=== PATIENT | female | born 1965 | race Caucasian/White ===

== ENCOUNTER 2019-01-01 10:35 | Inpatient (IN) ==
[2019-01-01 11:37] LABS: Basophils # (Auto) 0 K/mcL (0.0-0.3); Basophils % (Auto) 0 % (0.0-2.0); Eosinophils # (Auto) 0.1 K/mcL (0.0-0.7); Eosinophils % (Auto) 0.5 % (0.0-7.0); Granulocytes % (Auto) 90.8 % (38.0-78.0); Hematocrit 36.4 % (36.0-48.0); Hemoglobin 12.2 g/dL (12.0-15.0); Lymphocytes # (Auto) 0.7 K/mcL (1.5-4.8); Lymphocytes % (Auto) 4.7 % (15.5-49.0); Mean Cell Volume 97.3 fL (80.0-100.0); Mean Corpuscular HGB Conc 33.5 g/dL (31.0-36.0); Mean Platelet Volume 8.8 fL (7.4-10.4); Monocytes # (Auto) 0.6 K/mcL (0.1-0.9); Platelet Count 397 K/mcL (140-440); RBC 3.74 M/mcL (4.00-5.20); Red Cell Distribution Width 13.9 % (11.5-14.5); WBC 15.9 K/mcL (4.5-11.0)
--- NOTE | 2019-01-01 11:45 | Emergency Department Note ---
Overdose HPI - General Chief Complaint: Overdose Stated Complaint: overdose Time Seen by Provider: 01/01/19 11:41 Source: other Mode of arrival: wheelchair Limitations: altered mental status - History of Present Illness complaint: accidental overdose (pt with history of previous similar episodes) Onset (ago): day(s) (2) How Overdose Was Discovered: family/friend present at time Context: Accidental Overdose: medication error Associated symptoms: lethargy, other (psychomotor retardation, ) Treatments Prior to Arrival: none - Related Data Home Medications Medication Instructions Recorded Confirmed Acetaminophen [Tylenol] 650 mg PO TID 01/01/19 01/01/19 Baclofen [Lioresal] 20 mg PO TID 01/01/19 01/01/19 Cetirizine [ZyrTEC] 10 mg PO 01/01/19 01/01/19 Haloperidol [Haldol] 5 mg PO 01/01/19 01/01/19 Goessel Carbonate [Eskalith Cr] 450 mg PO BID 01/01/19 01/01/19 QUEtiapine [SEROquel] 50 mg PO BID 01/01/19 01/01/19 QUEtiapine [SEROquel] 300 mg PO 01/01/19 01/01/19 RX: Melatonin 5 mg PO 01/01/19 01/01/19 Ranitidine HCl [Zantac] 150 mg PO 01/01/19 01/01/19 Zonisamide [Zonegran] 300 mg PO 01/01/19 01/01/19 diphenhydrAMINE [Benadryl] 25 mg PO [facility] 01/01/19 01/01/19 traZODone HCL [Desyrel] 100 mg PO 01/01/19 01/01/19 Allergies Allergy/AdvReac Type Severity Reaction Status Date / Time codeine Allergy Mild Hives Verified 01/01/19 15:04 Penicillins Allergy Mild Hives Verified 01/01/19 15:04 Sulfa (Sulfonamide Allergy Verified 01/01/19 10:41 Antibiotics) Review of Systems Limitations: ROS unobtainable due to patients medical condition Past Medical History - Past Medical History PMFSH Narrative: All Active Problems Abscess of skin or subcutaneous tissue (Acute) Herpes zoster (Acute) Shingles (Acute) Schizophrenia (Acute) Impetigo (Acute) Muscle strain of left upper back (Acute) Contusion of left knee and lower leg (Acute) Epileptic seizure (Acute) Bipolar disorder (Acute) Chronic left shoulder pain (Acute) Acromioclavicular separation (Acute) Fracture, malunion (Acute) Anxiety (Acute) Insomnia (Acute) Chronic pain (Acute) Chronic pain (Acute) Contusion of right foot (Acute) Lumbar strain (Acute) Anxiety (Acute) Pseudoseizures (Acute) Acute anxiety (Acute) Suicidal ideation (Acute) Chronic foot pain (Acute) Drug-seeking behavior (Acute) Persistent mood [affective] disorder, unspecified (Acute) Encounter for medication refill (Acute) Ankle pain, right (Acute) Shoulder pain (Acute) Drug overdose (Acute) Head contusion (Acute) Urinary tract infection (Acute) Allergic reaction to drug (Acute) Methamphetamine abuse (Acute) Possible exposure to STD (Acute) Skin Abnormalities (Acute) Toxic epidermal necrolysis (Acute) Encounter for wound care (Acute) Drug-induced psychotic disorder (Acute) Acute psychosis (Acute) Acute sinusitis (Acute) Acute bronchitis (Acute) Chronic back pain (Acute) Chronic schizophrenia (Acute) Pseudoseizure (Acute) Psychosis (Acute) Arthritis (Acute) Bacterial conjunctivitis (Acute) Schizophrenia (Acute) Seizure (Acute) Fractured toe (Acute) Cellulitis (Acute) Abscess (Acute) Medical history: Reports: seizures, other (herpes zoster, pseudoseizures, drug overdose drug seeking behavior, chronic pain.) Psychiatric history: Reports: anxiety, bipolar, schizophrenia, previous psychiatric hospitalization, other (istory of traumatic brain injury) Surgical history ED: Reports: non-contributory - Social History smoking status: Current every day smoker Alcohol use: Reports: Occasionally Drug use: Reports: methamphetamine Physical Exam Limitations: altered mental status General appearance: alert, appears intoxicated, sleepy Head: atraumatic, normocephalic Eye: Present: normal appearance, PERRL, EOMI. Absent: scleral icterus, conjunct ival injection ENT: Present: normal oropharynx, mucous membranes moist Neck: Present: trachea midline. Absent: lymphadenopathy, thyromegaly Chest: Present: symmetric chest wall rise Respiratory: Present: normal lung sounds bilaterally. Absent: respiratory distress, wheezes, stridor, accessory muscle use, prolonged expiratory phase Cardiovascular: Present: regular rate, normal rhythm. Absent: systolic murmur, diastolic murmur Abdominal: Present: soft. Absent: distention, tenderness, guarding, rebound, rigidity, organomegaly, mass Extremities: Absent: pedal edema, pretibial edema, calf tenderness Back: Absent: CVA tenderness (R), CVA tenderness (L), spinous process tenderness Neurological: Present: alert Psychiatric: Present: depressed, flat affect Skin: Present: warm, dry Course Course Narrative: 53 year old female presenting with chief complaint of unintentional over dose/toxidrome. Consideration was given to the following toxidromes, sympathomimetic (hyperthermia, tachycardia, hypertension, diaphoresis, tremors, hyperreflexia, seizures), anticholinergic (hypothermia, tachycardia, hypertension, tachypnea, dry flash skin, dry mucous memories, decreased bowel sounds, urinary retention, mild clonus, picking behavior, seizures), hallucinogenic (hypothermia, tachycardia, tach hypertension, tachypnea, nystagmus), opioid (decreased respiratory drive, hypotension, bradycardia, hypothermia, hyperreflexia, pulmonary edema, track shultz), sedative-hypnotic (hypothermia, bradycardia, hypertension, apnea, decreased respiratory drive, hyperreflexia), cholinergic (bradycardia, salivation, urinary and fecal incontinence, diarrhea, emesis, diaphoresis, lacrimation, GI cramps, bronchoconstriction, muscle fasciculations and weakness, seizures), serotonin syndrome (hypothermia, tachycardia, hypertension, tachypnea, tremor, myoclonus, hyperreflexia, clonus, diaphoresis, flushing, trismus, rigidity, diarrhea). Consideration given to oxygen, naloxone, glucose. Patient with previous history of overdoses in the past which have been managed simply by holding medications for up to 3 to 4 days however despite holding medication for 2 days at this particular time patient is still symptomatic. Patient is having symptoms of decreased verbalization, psychomotor retardation, and generally confused. Laboratory investigations including CBC CMP UA UDS alcohol lithium as well as CT head were obtained in the emergency department. Findings in the ED support the diagnosis of hypokalemia, sepsis, and unintentional drug overdose. Pt with confusion and decreased verbalizations resulting in difficult history. Pt treated with broad spectrum antibiotics, IVF, and K replacement. Discussed the case with Dr. Fuentes and the consensus medical opinion is to admit the pt for ongoing care. Vital Signs Temperature 100.8 F H 01/01/19 10:36 Respiratory Rate 22 01/01/19 10:36 Blood Pressure 109/71 01/01/19 10:36 Pulse Oximetry (%) 97 01/01/19 10:36 Temperature 98.8 F 01/01/19 20:01 Pulse Rate 79 01/01/19 20:51 Respiratory Rate 16 01/01/19 20:51 Blood Pressure 105/70 01/01/19 20:01 Pulse Oximetry (%) 95 01/01/19 20:51 Overdose - Lab Data Result diagrams: 01/01/19 12:18 01/01/19 11:00 Lab Results 01/01/19 01/01/19 01/01/19 Range/Units 10:43 11:00 11:00 WBC 15.9 H (4.5-11.0) K/mcL RBC 3.74 L (4.00-5.20) M/mcL Hgb 12.2 (12.0-15.0) g/dL Hct 36.4 (36.0-48.0) % MCV 97.3 (80.0-100.0) fL MCH 32.6 (26.0-34.0) pg MCHC 33.5 (31.0-36.0) g/dL RDW 13.9 (11.5-14.5) % Plt Count 397 (140-440) K/mcL MPV 8.8 (7.4-10.4) fL Gran % 90.8 H (38.0-78.0) % Lymph % (Auto) 4.7 L (15.5-49.0) % Mobile % (Auto) 4.0 (1.0-12.0) % Eos % (Auto) 0.5 (0.0-7.0) % Baso % (Auto) 0 (0.0-2.0) % Gran # 14.5 H (1.8-8.0) K/mcL Lymph # (Auto) 0.7 L (1.5-4.8) K/mcL Mobile # (Auto) 0.6 (0.1-0.9) K/mcL Eos # (Auto) 0.1 (0.0-0.7) K/mcL Baso # (Auto) 0 (0.0-0.3) K/mcL VBG Lactic Acid (0.5-2.0) mmol/L Sodium 135 (133-145) mmol/L Potassium 2.6 L* (3.3-5.1) mmol/L Chloride 95 L (96-108) mmol/L Carbon Dioxide 25 (22-30) mmol/L Anion Gap 15.0 (8-16) BUN 8 (6-20) mg/dl Creatinine 0.9 (0.6-1.1) mg/dl GFR Calculation 74 Glucose 92 (70-105) mg/dL Calcium 9.6 (8.6-10.4) mg/dl Total Bilirubin 0.5 (0.0-1.0) mg/dL AST 19 (0-37) U/l ALT 21 (0-40) U/l Alkaline Phosphatase 71 (39-117) U/L Total Protein 6.9 (5.9-8.4) gm/dL Albumin 3.5 (3.2-5.2) gm/dL Globulin 3.4 (2.2-3.7) gm/dL Albumin/Globulin Ratio 1.0 (1.0-2.3) Procalcitonin 0.93 (<0.10) ng/mL Urine Color Urine Appearance Urine pH (5.0-9.0) Ur Specific [place] (1.000-1.035) Urine Protein (NEG) mg/dL Urine Glucose (UA) (NEG) mg/dL Urine Ketones (NEG) mg/dL Urine Occult Blood (<0.03) mg/dL Urine Nitrate (NEG) Urine Bilirubin (NEG) mg/dL Urine Urobilinogen (NEG) mg/dL Ur Leukocyte Esterase (NEG) /uL Urine RBC (0-1) /hpf Urine WBC (0-4) /hpf Ur Squamous Epith Cells (0-4) /hpf Urine Bacteria (0) /hpf Ur Culture Indicated? Salicylates mg/dL Urine Opiates Screen (NONDETECTED) Ur Opiates Confirm Ur Oxycodone Screen (NONDETECTED) Urine Methadone Screen (NONDETECTED) Ur Methadone Confirm Acetaminophen ug/mL Ur Barbiturates Screen (NONDETECTED) Ur Barbiturate Confirm Ur Phencyclidine Scrn (NONDETECTED) Urine PCP Confirm Ur Amphetamines Screen (NONDETECTED) U Amphetamines Confirm U Benzodiazepines Scrn (NONDETECTED) U Benzodiazepine Confm Goessel mmol/L Urine Cocaine Screen (NONDETECTED) Urine Cocaine Confirm U Cannabinoids Confirm U Marijuana (THC) Screen (NONDETECTED) Ethyl Alcohol (<0.010) gm/dl 01/01/19 01/01/19 01/01/19 Range/Units 11:00 11:01 11:03 WBC (4.5-11.0) K/mcL RBC (4.00-5.20) M/mcL Hgb (12.0-15.0) g/dL Hct (36.0-48.0) % MCV (80.0-100.0) fL MCH (26.0-34.0) pg MCHC (31.0-36.0) g/dL RDW (11.5-14.5) % Plt Count (140-440) K/mcL MPV (7.4-10.4) fL Gran % (38.0-78.0) % Lymph % (Auto) (15.5-49.0) % Mobile % (Auto) (1.0-12.0) % Eos % (Auto) (0.0-7.0) % Baso % (Auto) (0.0-2.0) % Gran # (1.8-8.0) K/mcL Lymph # (Auto) (1.5-4.8) K/mcL Mobile # (Auto) (0.1-0.9) K/mcL Eos # (Auto) (0.0-0.7) K/mcL Baso # (Auto) (0.0-0.3) K/mcL VBG Lactic Acid 1.0 (0.5-2.0) mmol/L Sodium (133-145) mmol/L Potassium (3.3-5.1) mmol/L Chloride (96-108) mmol/L Carbon Dioxide (22-30) mmol/L Anion Gap (8-16) BUN (6-20) mg/dl Creatinine (0.6-1.1) mg/dl GFR Calculation Glucose (70-105) mg/dL Calcium (8.6-10.4) mg/dl Total Bilirubin (0.0-1.0) mg/dL AST (0-37) U/l ALT (0-40) U/l Alkaline Phosphatase (39-117) U/L Total Protein (5.9-8.4) gm/dL Albumin (3.2-5.2) gm/dL Globulin (2.2-3.7) gm/dL Albumin/Globulin Ratio (1.0-2.3) Procalcitonin (<0.10) ng/mL Urine Color Urine Appearance Urine pH (5.0-9.0) Ur Specific [place] (1.000-1.035) Urine Protein (NEG) mg/dL Urine Glucose (UA) (NEG) mg/dL Urine Ketones (NEG) mg/dL Urine Occult Blood (<0.03) mg/dL Urine Nitrate (NEG) Urine Bilirubin (NEG) mg/dL Urine Urobilinogen (NEG) mg/dL Ur Leukocyte Esterase (NEG) /uL Urine RBC (0-1) /hpf Urine WBC (0-4) /hpf Ur Squamous Epith Cells (0-4) /hpf Urine Bacteria (0) /hpf Ur Culture Indicated? Salicylates < 0.3 mg/dL Urine Opiates Screen (NONDETECTED) Ur Opiates Confirm Ur Oxycodone Screen (NONDETECTED) Urine Methadone Screen (NONDETECTED) Ur Methadone Confirm Acetaminophen < 5.0 ug/mL Ur Barbiturates Screen (NONDETECTED) Ur Barbiturate Confirm Ur Phencyclidine Scrn (NONDETECTED) Urine PCP Confirm Ur Amphetamines Screen (NONDETECTED) U Amphetamines Confirm U Benzodiazepines Scrn (NONDETECTED) U Benzodiazepine Confm Goessel 1.0 mmol/L Urine Cocaine Screen (NONDETECTED) Urine Cocaine Confirm U Cannabinoids Confirm U Marijuana (THC) Screen (NONDETECTED) Ethyl Alcohol (<0.010) gm/dl 01/01/19 01/01/19 01/01/19 Range/Units 11:34 11:34 12:18 WBC 7.4 (4.5-11.0) K/mcL RBC 4.84 (4.00-5.20) M/mcL Hgb 15.9 H (12.0-15.0) g/dL Hct 46.4 (36.0-48.0) % MCV 95.9 (80.0-100.0) fL MCH 32.8 (26.0-34.0) pg MCHC 34.2 (31.0-36.0) g/dL RDW 12.1 (11.5-14.5) % Plt Count 211 (140-440) K/mcL MPV 8.1 (7.4-10.4) fL Gran % 69.6 (38.0-78.0) % Lymph % (Auto) 23.1 (15.5-49.0) % Mobile % (Auto) 6.1 (1.0-12.0) % Eos % (Auto) 1.0 (0.0-7.0) % Baso % (Auto) 0.2 (0.0-2.0) % Gran # 5.1 (1.8-8.0) K/mcL Lymph # (Auto) 1.7 (1.5-4.8) K/mcL Mobile # (Auto) 0.4 (0.1-0.9) K/mcL Eos # (Auto) 0.1 (0.0-0.7) K/mcL Baso # (Auto) 0 (0.0-0.3) K/mcL VBG Lactic Acid (0.5-2.0) mmol/L Sodium (133-145) mmol/L Potassium (3.3-5.1) mmol/L Chloride (96-108) mmol/L Carbon Dioxide (22-30) mmol/L Anion Gap (8-16) BUN (6-20) mg/dl Creatinine (0.6-1.1) mg/dl GFR Calculation Glucose (70-105) mg/dL Calcium (8.6-10.4) mg/dl Total Bilirubin (0.0-1.0) mg/dL AST (0-37) U/l ALT (0-40) U/l Alkaline Phosphatase (39-117) U/L Total Protein (5.9-8.4) gm/dL Albumin (3.2-5.2) gm/dL Globulin (2.2-3.7) gm/dL Albumin/Globulin Ratio (1.0-2.3) Procalcitonin (<0.10) ng/mL Urine Color Straw Urine Appearance Clear Urine pH 7.0 (5.0-9.0) Ur Specific [place] 1.002 (1.000-1.035) Urine Protein Neg (NEG) mg/dL Urine Glucose (UA) Negative (NEG) mg/dL Urine Ketones Neg (NEG) mg/dL Urine Occult Blood 0.2 A (<0.03) mg/dL Urine Nitrate Neg (NEG) Urine Bilirubin Neg (NEG) mg/dL Urine Urobilinogen Neg (NEG) mg/dL Ur Leukocyte Esterase 500 A (NEG) /uL Urine RBC < 1 (0-1) /hpf Urine WBC 10 H (0-4) /hpf Ur Squamous Epith Cells < 1 (0-4) /hpf Urine Bacteria 0 (0) /hpf Ur Culture Indicated? Yes Salicylates mg/dL Urine Opiates Screen None detected (NONDETECTED) Ur Opiates Confirm Not Reportable Ur Oxycodone Screen None detected (NONDETECTED) Urine Methadone Screen None detected (NONDETECTED) Ur Methadone Confirm Not Reportable Acetaminophen ug/mL Ur Barbiturates Screen None detected (NONDETECTED) Ur Barbiturate Confirm Not Reportable Ur Phencyclidine Scrn None detected (NONDETECTED) Urine PCP Confirm Not Reportable Ur Amphetamines Screen None detected (NONDETECTED) U Amphetamines Confirm Not Reportable U Benzodiazepines Scrn None detected (NONDETECTED) U Benzodiazepine Confm Not Reportable Goessel mmol/L Urine Cocaine Screen None detected (NONDETECTED) Urine Cocaine Confirm Not Reportable U Cannabinoids Confirm Not Reportable U Marijuana (THC) Screen None detected (NONDETECTED) Ethyl Alcohol (<0.010) gm/dl 01/01/19 Range/Units 12:18 WBC (4.5-11.0) K/mcL RBC (4.00-5.20) M/mcL Hgb (12.0-15.0) g/dL Hct (36.0-48.0) % MCV (80.0-100.0) fL MCH (26.0-34.0) pg MCHC (31.0-36.0) g/dL RDW (11.5-14.5) % Plt Count (140-440) K/mcL MPV (7.4-10.4) fL Gran % (38.0-78.0) % Lymph % (Auto) (15.5-49.0) % Mobile % (Auto) (1.0-12.0) % Eos % (Auto) (0.0-7.0) % Baso % (Auto) (0.0-2.0) % Gran # (1.8-8.0) K/mcL Lymph # (Auto) (1.5-4.8) K/mcL Mobile # (Auto) (0.1-0.9) K/mcL Eos # (Auto) (0.0-0.7) K/mcL Baso # (Auto) (0.0-0.3) K/mcL VBG Lactic Acid (0.5-2.0) mmol/L Sodium (133-145) mmol/L Potassium (3.3-5.1) mmol/L Chloride (96-108) mmol/L Carbon Dioxide (22-30) mmol/L Anion Gap (8-16) BUN (6-20) mg/dl Creatinine (0.6-1.1) mg/dl GFR Calculation Glucose (70-105) mg/dL Calcium (8.6-10.4) mg/dl Total Bilirubin (0.0-1.0) mg/dL AST (0-37) U/l ALT (0-40) U/l Alkaline Phosphatase (39-117) U/L Total Protein (5.9-8.4) gm/dL Albumin (3.2-5.2) gm/dL Globulin (2.2-3.7) gm/dL Albumin/Globulin Ratio (1.0-2.3) Procalcitonin (<0.10) ng/mL Urine Color Urine Appearance Urine pH (5.0-9.0) Ur Specific [place] (1.000-1.035) Urine Protein (NEG) mg/dL Urine Glucose (UA) (NEG) mg/dL Urine Ketones (NEG) mg/dL Urine Occult Blood (<0.03) mg/dL Urine Nitrate (NEG) Urine Bilirubin (NEG) mg/dL Urine Urobilinogen (NEG) mg/dL Ur Leukocyte Esterase (NEG) /uL Urine RBC (0-1) /hpf Urine WBC (0-4) /hpf Ur Squamous Epith Cells (0-4) /hpf Urine Bacteria (0) /hpf Ur Culture Indicated? Salicylates mg/dL Urine Opiates Screen (NONDETECTED) Ur Opiates Confirm Ur Oxycodone Screen (NONDETECTED) Urine Methadone Screen (NONDETECTED) Ur Methadone Confirm Acetaminophen ug/mL Ur Barbiturates Screen (NONDETECTED) Ur Barbiturate Confirm Ur Phencyclidine Scrn (NONDETECTED) Urine PCP Confirm Ur Amphetamines Screen (NONDETECTED) U Amphetamines Confirm U Benzodiazepines Scrn (NONDETECTED) U Benzodiazepine Confm Goessel mmol/L Urine Cocaine Screen (NONDETECTED) Urine Cocaine Confirm U Cannabinoids Confirm U Marijuana (THC) Screen (NONDETECTED) Ethyl Alcohol < 0.010 (<0.010) gm/dl - EKG Data EKG shows normal: sinus rhythm Rate: normal Rhythm: NSR P waves: normal Heart block present: None ST segment elevation in: None ST segment depression in: None Q waves: None QTc: normal QRS morphology: normal Critical Care Time Critical Care Time: Yes Total Critical Care Time: 68 Disposition Pt seen by DIRECTOR FINANCIAL ANALYSIS/PA only: No Clinical Impression: Hypokalemia Accidental drug ingestion Qualifiers: Encounter type: initial encounter Qualified Code(s): T50.901A - Poisoning by unspecified drugs, medicaments and biological substances, accidental (unintentional), initial encounter Sepsis Qualifiers: Sepsis type: sepsis due to unspecified organism Sepsis acute organ dysfunction status: without acute organ dysfunction Qualified Code(s): A41.9 - Sepsis, unspecified organism Disposition: Xfer As Inpt ([facility]) Condition: Fair
[2019-01-01] MEDS ORDERED: 0.9 % SODIUM CHLORIDE 1,000 ML IV ONE (11:48)
[2019-01-01 12:04] LABS: ALT/SGPT 21 U/l (0-40); AST/SGOT 19 U/l (0-37); Albumin 3.5 gm/dL (3.2-5.2); Alkaline Phosphatase 71 U/L (39-117); Bilirubin,Total 0.5 mg/dL (0.0-1.0); Blood Urea Nitrogen 8 mg/dl (6-20); Calcium 9.6 mg/dl (8.6-10.4); Carbon Dioxide 25 mmol/L (22-30); Chloride 95 mmol/L (96-108); Globulin 3.4 gm/dL (2.2-3.7); Glomerular Filtration Rate 74; Glucose 92 mg/dL (70-105)
[2019-01-01 12:04] LABS: Acetaminophen < 5.0 ug/mL
--- NOTE | 2019-01-01 12:13 | Cat Scan Report ---
History: Altered mental status with car rolled speech, multiple recent falls. TECHNIQUE: The brain was imaged without contrast at 2.5 mm intervals. Sagittal and coronal reformats were created. The radiation exposure was limited using dose reduction technology. FINDINGS: The brain appears normal without evidence of mass hemorrhage, infarct or degenerative change. The ventricles and cisterns are normal. No abnormal extra-axial fluid collection is present. Bone windows show no skull fracture. Comparison with the prior exam from 12/03/16 shows no change. IMPRESSION: Normal exam Dr. Bell was called with the results Interpreted and Authenticated by: Hal Marrero 01/01/19
[2019-01-01 12:21] LABS: Appearance,Urine CLEAR; Bacteria,Urine 0 /hpf (0); Bilirubin,Urine NEG (NEG); Color,Urine STRAW; Culture Indicated,Urine YES; Glucose,Urine (UA) NEGATIVE (NEG); Ketones,Urine NEG (NEG); Leukocyte Esterase,Urine 500 /uL (NEG); Nitrate,Urine NEG (NEG); Protein,Urine NEG (NEG); Specific Gravity,Urine 1.002 (1.000-1.035); Urine Blood 0.2 mg/dL (<0.03); Urine RBC < 1 /hpf (0-1); Urine Squamous Epithelial Cell < 1 /hpf (0-4); Urine WBC 10 /hpf (0-4); Urobilinogen,Urine NEG (NEG)
[2019-01-01 12:27] LABS: Amphetamine Screen,Urine NONE DETECTED (NONDETECTED); Barbiturate Screen,Urine NONE DETECTED (NONDETECTED); Benzodiazepines Screen,Urine NONE DETECTED (NONDETECTED); Cannabinoid Screen,Urine NONE DETECTED (NONDETECTED); Cocaine Screen,Urine NONE DETECTED (NONDETECTED); Opiate Screen,Urine NONE DETECTED (NONDETECTED); Oxycodone, Urine Screen NONE DETECTED (NONDETECTED); Phencyclidine Screen,Urine NONE DETECTED (NONDETECTED)
[2019-01-01] MEDS ORDERED: POTASSIUM CHLORIDE 20 MEQ in DEXTROSE 5% IN WATER 250 ML IV ONE (12:38)
[2019-01-01] MEDS ORDERED: POTASSIUM CHLORIDE 10 MEQ TABLET PO ONE (12:39)
[2019-01-01 13:05] LABS: Basophils # (Auto) 0 K/mcL (0.0-0.3); Basophils % (Auto) 0.2 % (0.0-2.0); Eosinophils # (Auto) 0.1 K/mcL (0.0-0.7); Granulocytes % (Auto) 69.6 % (38.0-78.0); Hematocrit 46.4 % (36.0-48.0); Hemoglobin 15.9 g/dL (12.0-15.0); Lymphocytes # (Auto) 1.7 K/mcL (1.5-4.8); Lymphocytes % (Auto) 23.1 % (15.5-49.0); Mean Cell Volume 95.9 fL (80.0-100.0); Mean Corpuscular HGB Conc 34.2 g/dL (31.0-36.0); Mean Platelet Volume 8.1 fL (7.4-10.4); Monocytes # (Auto) 0.4 K/mcL (0.1-0.9); Monocytes % (Auto) 6.1 % (1.0-12.0); Platelet Count 211 K/mcL (140-440); RBC 4.84 M/mcL (4.00-5.20); Red Cell Distribution Width 12.1 % (11.5-14.5); WBC 7.4 K/mcL (4.5-11.0)
--- NOTE | 2019-01-01 13:09 | XRay Report ---
HISTORY: Fever, increased confusion and overdose FINDINGS: There is a generalized haziness in the lung parenchyma in both lower lobes and around the left hilum. Much worse consolidation was seen in both lungs on the prior study done on 04/06/10. Lung volumes are normal. There is no lobar consolidation. No pleural effusion is present. The heart size, mediastinum and emily are normal. IMPRESSION: Mild nonspecific bilateral alveolar infiltrates. This could be due to pneumonia, aspiration or drug reaction. Interpreted and Authenticated by: Hal Marrero 01/01/19
[2019-01-01 13:12] LABS: Alcohol, Blood < 10.0 mg/dL (<10); Alcohol,Blood < 0.010 gm/dl (<0.010)
[2019-01-01] MEDS ORDERED: cefTRIAXone 2 GM in DEXTROSE 5% IN WATER 50 ML IV ONE (13:32)
--- NOTE | 2019-01-01 13:44 | Internal Med History&Physical ---
Medical - H&P: [facility] Patient information: Note initiated : 01/01/19 at 1:38 pm Service Date, if different from initiated Date: [] Patient: Milka Castano a 53 y/o F admitted on for Overdose. Chief Complaint: [] Chief complaint: Multiple psych medication overdose History of present illness: Ms. Castano is a 53 year old F with a known history of paranoid schizophrenia/depression/prior suicidal attempt who was brought into the ER by boyfriend with suspected multiple psychiatric medication overdose. She was brought in near unresponsive state. Patient carries a history of overdose in the past but her boyfriend does not think this was intentional. Most of the history was obtained from review of medical records and patient's boyfriend. Initial work-up in the ER was consistent with bilateral chest infiltrates suggestive of aspiration pneumonia. EKG did not reveal QT prolongation or e vidence of arrhythmia. White count 15.9 potassium 2.6. Patient was started on antibiotics/IV potassium. Hospitalist service was consulted for admission in light of acute overdose At the time of evaluation no family members are present. Patient is confused and mumbling. Most of the history was obtained from review of medical records and ER physician. Patient has had a recent hospitalization at the mental health unit at [facility]. Patient carries significant history of schizophrenia/anxi ety depression and is on multiple medications including lithium/baclofen/Haldol/Seroquel/Desyrel/Zonegran. It is unclear how many pills she consumed before being brought in unresponsive state. She is however hemodynamically stable without any signs of neuroleptic malignant syndrome or EKG changes. Review of systems Attempted but could not performed Medical - H&P: PM Medical history: Abscess of skin or subcutaneous tissue (Acute) Herpes zoster (Acute) Shingles (Acute) Schizophrenia (Acute) Impetigo (Acute) Muscle strain of left upper back (Acute) Contusion of left knee and lower leg (Acute) Epileptic seizure (Acute) Bipolar disorder (Acute) Chronic left shoulder pain (Acute) Acromioclavicular separation (Acute) Fracture, malunion (Acute) Anxiety (Acute) Insomnia (Acute) Chronic pain (Acute) Chronic pain (Acute) Contusion of right foot (Acute) Lumbar strain (Acute) Anxiety (Acute) Pseudoseizures (Acute) Acute anxiety (Acute) Suicidal ideation (Acute) Chronic foot pain (Acute) Drug-seeking behavior (Acute) Persistent mood [affective] disorder, unspecified (Acute) Encounter for medication refill (Acute) Ankle pain, right (Acute) Shoulder pain (Acute) Drug overdose (Acute) Head contusion (Acute) Urinary tract infection (Acute) Allergic reaction to drug (Acute) Methamphetamine abuse (Acute) Possible exposure to STD (Acute) Skin Abnormalities (Acute) Toxic epidermal necrolysis (Acute) Encounter for wound care (Acute) Drug-induced psychotic disorder (Acute) Acute psychosis (Acute) Acute sinusitis (Acute) Acute bronchitis (Acute) Chronic back pain (Acute) Chronic schizophrenia (Acute) Pseudoseizure (Acute) Psychosis (Acute) Arthritis (Acute) Bacterial conjunctivitis (Acute) Schizophrenia (Acute) Seizure (Acute) Fractured toe (Acute) Cellulitis (Acute) Abscess (Acute) Medical history: Reports: seizures, other (herpes zoster, pseudoseizures, drug overdose drug seeking behavior, chronic pain.) Psychiatric history: Reports: anxiety, bipolar, schizophrenia, previous psychiatric hospitalization, other (istory of traumatic brain injury) Surgical history ED: Reports: non-contributory - Social History smoking status: Current every day smoker Alcohol use: Reports: Occasionally Drug use: Reports: methamphetamine Lives with boyfriend Family history: reviewed and not pertinent Medical - H&P: Meds Home Medications Medication Instructions Recorded Confirmed Type Acetaminophen [Tylenol] 650 mg PO TID 01/01/19 01/01/19 History Baclofen [Lioresal] 20 mg PO TID 01/01/19 01/01/19 History Cetirizine [ZyrTEC] 10 mg PO HS 01/01/19 01/01/19 History Haloperidol [Haldol] 5 mg PO 01/01/19 01/01/19 History [place] Carbonate [Eskalith Cr] 450 mg PO BID 01/01/19 01/01/19 History Melatonin 5 mg PO 01/01/19 01/01/19 History QUEtiapine [SEROquel] 50 mg PO BID 01/01/19 01/01/19 History QUEtiapine [SEROquel] 300 mg PO HS 01/01/19 01/01/19 History Ranitidine HCl [Zantac] 150 mg PO HS 01/01/19 01/01/19 History Zonisamide [Zonegran] 300 mg PO 01/01/19 01/01/19 History diphenhydrAMINE [Benadryl] 25 mg PO HSP 01/01/19 01/01/19 History traZODone HCL [Desyrel] 100 mg PO HS 01/01/19 01/01/19 History Allergies Allergy/AdvReac Type Severity Reaction Status Date / Time codeine Allergy Mild Hives Verified 01/01/19 15:04 Penicillins Allergy Mild Hives Verified 01/01/19 15:04 Sulfa (Sulfonamide Allergy Verified 01/01/19 10:41 Antibiotics) Medical - H&P: Exam - Constitutional Vitals: Temp Pulse Resp BP Pulse Ox 100.8 F H 77 20 106/69 95 01/01/19 10:36 01/01/19 12:41 01/01/19 12:41 01/01/19 12:41 01/01/19 12:41 General appearance: thin Exam: Mumbling confused and agitated Head normocephalic Excessive oral salivation No ear nose discharge No lymphadenopathy S1-S2 tachycardia Diminished breath sounds bases Abdomen soft nontender Lower extremity no cyanosis clubbing no joint swelling Skin no suspicious lesion Psych agitated confused Neuro GCS 4 Medical - H&P: Reslt - Labs CBC & Chem 7: 01/02/19 03:27 01/02/19 03:27 Labs: Short CBC 01/01/19 01/01/19 Range/Units 11:00 12:18 WBC 15.9 H 7.4 (4.5-11.0) K/mcL Hgb 12.2 15.9 H (12.0-15.0) g/dL Hct 36.4 46.4 (36.0-48.0) % Plt Count 397 211 (140-440) K/mcL BMP 01/01/19 11:00 Sodium 135 Potassium 2.6 L* Chloride 95 L Carbon Dioxide 25 BUN 8 Creatinine 0.9 Glucose 92 Calcium 9.6 Liver Function 01/01/19 Range/Units 11:00 Total Bilirubin 0.5 (0.0-1.0) mg/dL AST 19 (0-37) U/l ALT 21 (0-40) U/l Alkaline Phosphatase 71 (39-117) U/L Albumin 3.5 (3.2-5.2) gm/dL Urine 01/01/19 Range/Units 11:34 Urine Color Straw Urine Appearance Clear Urine pH 7.0 (5.0-9.0) Ur Specific [place] 1.002 (1.000-1.035) Urine Protein Neg (NEG) mg/dL Urine Glucose (UA) Negative (NEG) mg/dL Medical - H&P: A/P (1) Bilateral pneumonia Current visit: Yes Status: Acute * Bilateral pneumonia-suspect aspiration, continue aspiration precautions/antibiotic coverage. * Overdose of unknown quantity of psychiatric medications(likely a combination of antipsychotic/antidepressant and H1 antagonist)-no significant QT elevation or evidence of hyperthermia or neuroleptic malignant syndrome. Continue te lemetry monitoring for arrhythmias. Aggressive crystalloid. Unclear if intentional. Await family members for further history. Will seek behavioral health services consult once patient medically stable * Altered mental status secondary to polypharmacy and antipsychotic overdose * Hypokalemia- IV and PO replacement as indicated * History of schizophrenia * History of polysubstance abuse with drug induced psychosis * Full code * Prophylaxis heparin Plan * Telemetry admit * Close hemodynamic monitoring/arrhythmia watch * K replacement * Crystalloid/nutrition support * Case management/behavioral health consult once patient stable * Behavioral health services consult
[2019-01-01] MEDS ORDERED: MAGNESIUM SULFATE 2 GM/50 ML BAG IV PRN (14:38)
[2019-01-01] MEDS ORDERED: MAGNESIUM HYDROXIDE 30 ML ORAL.SUSP PO PRN (14:38)
[2019-01-01] MEDS ORDERED: ACETAMINOPHEN 325 MG TABLET PO PRN (14:38)
[2019-01-01] MEDS ORDERED: POTASSIUM CHLORIDE 20 MEQ PACKET PO PRN (14:38)
[2019-01-01] MEDS ORDERED: IPRATROPIUM/ALBUTEROL 3 ML AMPUL.NEB NEB PRN (14:38)
[2019-01-01] MEDS ORDERED: MELATONIN 3 MG TABLET PO PRN (14:38)
[2019-01-01] MEDS ORDERED: ONDANSETRON 4 MG/2 ML VIAL IV PRN (14:38)
[2019-01-01] MEDS ORDERED: HALOPERIDOL LACTATE 5 MG/ML VIAL IV PRN (14:42)
[2019-01-01] MEDS: LEVOFLOXACIN 750 MG/150 ML BAG IV SCH (15:20)
[2019-01-01] MEDS: 0.9 % SODIUM CHLORIDE 10 ML SYRINGE IV SCH ×2 (15:21→20:36)
[2019-01-01] MEDS: metroNIDAZOLE 500 MG/100 ML BAG IV SCH ×2 (16:59→22:13)
[2019-01-01] MEDS: 0.9 % SODIUM CHLORIDE 1,000 ML IV SCH (17:38)
[2019-01-01] MEDS: LORazepam 2 MG/ML VIAL IV PRN ×2 (18:30→22:43)
[2019-01-01] MEDS: BUDESONIDE 0.5 MG/2 ML AMPUL.NEB NEB SCH (20:34)
[2019-01-01] MEDS: CYANOCOBALAMIN (VITAMIN B-12) 500 MCG TABLET PO SCH (20:34)
[2019-01-01] MEDS: HEPARIN 5,000 UNIT/ML VIAL SQ SCH (20:35)
[2019-01-01] MEDS: SENNOSIDES/DOCUSATE SODIUM 1 TAB TABLET PO SCH (20:35)
[2019-01-01] MEDS: MELATONIN 3 MG TABLET PO SCH (20:35)
[2019-01-01] MEDS: CETIRIZINE 10 MG TABLET PO SCH (20:35)
[2019-01-01] MEDS: DOCUSATE SODIUM 100 MG CAPSULE PO SCH (20:35)
[2019-01-01] MEDS: LITHIUM CARBONATE 450 MG TAB.SR.12H PO SCH (20:35)
[2019-01-01] MEDS: FAMOTIDINE 20 MG TABLET PO SCH (20:35)
[2019-01-02] MEDS: LORazepam 2 MG/ML VIAL IV PRN ×4 (03:18→21:17)
[2019-01-02] MEDS: 0.9 % SODIUM CHLORIDE 1,000 ML IV SCH ×3 (03:19→21:15)
[2019-01-02] MEDS: metroNIDAZOLE 500 MG/100 ML BAG IV SCH ×3 (04:59→21:13)
[2019-01-02] MEDS: 0.9 % SODIUM CHLORIDE 10 ML SYRINGE IV SCH ×3 (05:00→23:51)
[2019-01-02 05:26] LABS: Hematocrit 32.7 % (36.0-48.0); Hemoglobin 10.7 g/dL (12.0-15.0); Mean Cell Volume 99.2 fL (80.0-100.0); Mean Corpuscular HGB Conc 32.7 g/dL (31.0-36.0); Mean Platelet Volume 8.8 fL (7.4-10.4); Platelet Count 361 K/mcL (140-440); Red Cell Distribution Width 14.2 % (11.5-14.5); WBC 14.7 K/mcL (4.5-11.0)
[2019-01-02 05:58] LABS: ALT/SGPT 24 U/l (0-40); AST/SGOT 20 U/l (0-37); Albumin 2.8 gm/dL (3.2-5.2); Alkaline Phosphatase 83 U/L (39-117); Bilirubin,Direct < 0.2 mg/dL (0.0-0.3); Bilirubin,Total 0.4 mg/dL (0.0-1.0); Blood Urea Nitrogen 6 mg/dl (6-20); Carbon Dioxide 24 mmol/L (22-30); Chloride 106 mmol/L (96-108); Globulin 2.9 gm/dL (2.2-3.7); Glomerular Filtration Rate 85; Glucose 85 mg/dL (70-105); Lactate Dehydrogenase 185 U/L (94-250); Phosphorous 2.7 mg/dL (2.7-4.5); Triglycerides 77 mg/dl (<150)
[2019-01-02 06:03] LABS: Lymphocytes % 6 % (15-49); Monocytes % (Manual) 8 % (1-12); Platelet Estimate NORMAL (NORMAL); RBC Morphology NORMAL (NORMAL); Segmented Neutrophils % 86 % (38-78)
[2019-01-02] MEDS ORDERED: POTASSIUM CHLORIDE 20 MEQ/10 ML VIAL IV ONE (06:03)
[2019-01-02] MEDS: POTASSIUM CHLORIDE 40 MEQ in DEXTROSE 5% IN WATER 500 ML IV PRN (06:10)
[2019-01-02] MEDS: HALOPERIDOL LACTATE 5 MG/ML VIAL IM PRN ×3 (07:02→22:08)
[2019-01-02] MEDS: MULTIVIT,THER IRON,CA,FA & MIN 1 TABLET PO SCH ×2 (09:58→10:21)
[2019-01-02] MEDS: THIAMINE 100 MG TABLET PO SCH ×2 (09:58→10:18)
[2019-01-02] MEDS: LITHIUM CARBONATE 450 MG TAB.SR.12H PO SCH ×2 (09:58→20:49)
[2019-01-02] MEDS: CYANOCOBALAMIN (VITAMIN B-12) 500 MCG TABLET PO SCH ×3 (09:58→20:48)
[2019-01-02] MEDS: HEPARIN 5,000 UNIT/ML VIAL SQ SCH ×2 (09:58→20:49)
[2019-01-02] MEDS: FOLIC ACID 1 MG TABLET PO SCH (09:58)
[2019-01-02] MEDS: DOCUSATE SODIUM 100 MG CAPSULE PO SCH ×2 (09:58→20:49)
[2019-01-02] MEDS: LEVOFLOXACIN 750 MG/150 ML BAG IV SCH (10:00)
--- NOTE | 2019-01-02 11:29 | Internal Med Progress Note ---
Medical - PN: Subj Patient information: Note initiated : 01/02/19 at 11:25 am Service Date, if different from initiated Date: [] Patient: Milka Castano a 53 y/o F admitted on 01/01/19 for Overdose. Chief Complaint: [] Interval history: Ms. Castano is a 53 year old F with a known history of paranoid schizophrenia/d epression/prior suicidal attempt who was brought into the ER by boyfriend with suspected multiple psychiatric medication overdose. She was brought in near unresponsive state. Patient carries a history of overdose in the past but her boyfriend does not think this was intentional. Most of the history was obtained from review of medical records and patient's boyfriend. Initial work-up in the ER was consistent with bilateral chest infiltrates suggestive of aspiration pneumonia. EKG did not reveal QT prolongation or evidence of arrhythmia. White count 15.9 potassium 2.6. Patient was started on antibiotics/IV potassium. Hospitalist service was consulted for admission in light of acute overdose At the time of evaluation no family members are present. Patient is confused and mumbling. Most of the history was obtained from review of medical records and ER physician. Patient has had a recent hospitalization at the mental health unit at [facility]. Patient carries significant history of schizophrenia/anxiety depression and is on multiple medications including lithium/baclofen/Haldol/Seroquel/Desyrel/Zonegran. It is unclear how many pills she consumed before being brought in unresponsive state. She is however hemodynamically stable without any signs of neuroleptic malignant syndrome or EKG changes. 01/02-patient on continuous watch post overdose. She is now more alert and responding to commands. Boyfriend at bedside and does not feel she is near baseline. Potassium on replacement current potassium 2.6. Restarted on home lithium/antipsychotics as patient has been agitated and cursing at nursing staff. No overnight fever. White count at 14 .7. On antibiotic coverage for bilateral pneumonia. - Constitutional Vitals: Vital Signs Temp Pulse Resp BP Pulse Ox 97.8 F 70 20 97/66 93 01/02/19 08:00 01/02/19 08:00 01/02/19 08:00 01/02/19 08:00 01/02/19 08:00 Period Temp Pulse Resp BP Sys/Guzman Pulse Ox Last 24 Hr 97.8 F-100.8 F 70-105 15-24 94-123/59-95 93-99 Intake and Output 01/01/19 01/02/19 01/02/19 21:59 05:59 13:59 Intake Total 3310 2768 850 Output Total 1450 2850 1250 Balance 1860 82 -400 Weight 104 lb 11.2 oz Intake & Output: Intake & Output 01/01/19 01/02/19 01/02/19 21:59 05:59 13:59 Intake Total 3310 2768 850 Output Total 1450 2850 1250 Balance 1860 82 -400 Weight 104 lb 11.2 oz Intake: IV 1510 1068 100 Sodium Chloride 0.9% 1,000 ml @ 968 100 mls/hr IV .Q10H JOSHUA Rx#: [id number] Potassium Chloride 20 Meq In 260 Dextrose 5% in Water 250 ml @ 130 mls/hr IV ONCE ONE Rx#: [id number] Oral 1800 1700 750 Output: Void Amount 1450 2850 1250 Other: Meal Dinner Gatorade Percent of Meal Consumed 50% 25% Feeding Ability Needs Supervision Urine Appearance Clear Clear Urine Color Pale Straw Urine Odor Normal Normal Stool Size Large Stool Consistency Liquid # Voids 1 General appearance: no acute distress Exam: More alert and responding to commands No telemetry events Nonlabored breathing Intermittent agitation and psychotic behavior Medical - PN: Obj Da - Labs CBC & Chem 7: 01/02/19 03:27 01/02/19 03:27 Labs: Abnormal Lab Results 01/02/19 01/02/19 01/01/19 03:27 03:27 12:18 WBC 14.7 H RBC 3.30 L Hgb 10.7 L 15.9 H Hct 32.7 L Gran % Lymph % (Auto) Gran # Lymph # (Auto) Seg Neutrophils % 86 H Lymphocytes % 6 L Potassium 2.6 L* Chloride Total Protein 5.7 L Albumin 2.8 L Urine Occult Blood Ur Leukocyte Esterase Urine WBC 01/01/19 01/01/19 01/01/19 11:34 11:00 11:00 WBC 15.9 H RBC 3.74 L Hgb Hct Gran % 90.8 H Lymph % (Auto) 4.7 L Gran # 14.5 H Lymph # (Auto) 0.7 L Seg Neutrophils % Lymphocytes % Potassium 2.6 L* Chloride 95 L Total Protein Albumin Urine Occult Blood 0.2 A Ur Leukocyte Esterase 500 A Urine WBC 10 H Meds: Medications Acetaminophen (Tylenol) 650 mg PO Q4-6HP PRN PRN Reason: PAIN/FEVER > 101 Albuterol/Ipratropium (Duoneb) 3 ml NEB Q4HP PRN PRN Reason: Shortness Of Breath Last Admin: 01/01/19 20:34 Dose: 3 ml Documented by: Budesonide (Pulmicort) 0.5 mg NEB Q12 [facility] Last Admin: 01/01/19 20:34 Dose: 0.5 mg Documented by: Cetirizine HCl (Zyrtec) 10 mg PO HS [facility] Last Admin: 01/01/19 20:35 Dose: 10 mg Documented by: Cyanocobalamin (Vitamin B-12) 1,000 mcg PO BID [facility] Stop: 01/06/19 09:01 Last Admin: 01/02/19 10:20 Dose: Not Given Documented by: Docusate Sodium (Colace) 100 mg PO BID [facility] Last Admin: 01/02/19 09:58 Dose: 100 mg Documented by: Famotidine (Pepcid) 20 mg PO HS [facility] Last Admin: 01/01/19 20:35 Dose: 20 mg Documented by: Folic Acid (Folic Acid) 1 mg PO DAILY [facility] Last Admin: 01/02/19 09:58 Dose: 1 mg Documented by: Haloperidol Lactate (Haldol) 5 mg IM Q6HP PRN PRN Reason: ANXIETY/SEDATION Last Admin: 01/02/19 07:02 Dose: 5 mg Documented by: Heparin Sodium (Porcine) (Heparin) 5,000 unit SQ Q12 [facility] Last Admin: 01/02/19 09:58 Dose: 5,000 unit Documented by: Potassium Chloride 40 meq/ (Dextrose) 520 mls @ 130 mls/hr IV UD PRN PRN Reason: K+ = or < 3.5 Last Admin: 01/02/19 06:10 Dose: 130 mls/hr Documented by: Levofloxacin (Levaquin) 750 mg in 150 mls @ 100 mls/hr IV Q24H [facility]; Protocol Last Admin: 01/02/19 10:00 Dose: 100 mls/hr Documented by: Magnesium Sulfate (Magnesium Sulfate) 2 gm in 50 mls @ 50 mls/hr IV UD PRN PRN Reason: MG = or < 1.7 Metronidazole (Flagyl) 500 mg in 100 mls @ 100 mls/hr IV Q8H [facility]; Protocol Last Infusion: 01/02/19 06:23 Dose: Infused Documented by: Sodium Chloride (Sodium Chloride 0.9%) 1,000 mls @ 100 mls/hr IV .Q10H [facility] Last Admin: 01/02/19 03:19 Dose: 100 mls/hr Documented by: Acetaminophen (Ofirmev) 700 mg in 70 mls @ 140 mls/hr IV Q6HP PRN PRN Reason: PAIN/FEVER > 101 Iron Carb/Multivit/[employer]/Folic Acid (Multivitamin W/Minerals) 1 tab PO DAILY [facility] Last Admin: 01/02/19 10:21 Dose: Not Given Documented by: [place] Carbonate (Eskalith Cr) 450 mg PO BID [facility] Last Admin: 01/02/19 09:58 Dose: 450 mg Documented by: Lorazepam (Ativan) 1 mg IV Q4HP PRN PRN Reason: ANXIETY/SEDATION Last Admin: 01/02/19 03:18 Dose: 1 mg Documented by: Magnesium Hydroxide (Milk Of Magnesia) 30 ml PO HSP PRN PRN Reason: Constipation Melatonin (Melatonin 3mg Tablet) 3 mg PO [facility] Last Admin: 01/01/19 20:35 Dose: 3 mg Documented by: Ondansetron HCl (Zofran) 4 mg IV Q4-6HP PRN PRN Reason: Nausea And Vomiting Potassium Chloride (Klor-Con) 40 meq PO DAILYP PRN PRN Reason: K+ < 3.5 Senna/Docusate Sodium (Senna Plus Tablet) 1 tab PO [facility] Last Admin: 01/01/19 20:35 Dose: 1 tab Documented by: Sodium Chloride (Saline Flush) 10 ml IV Q8 [facility] Last Admin: 01/02/19 05:00 Dose: Not Given Documented by: Thiamine HCl (Vitamin B1) 100 mg PO DAILY [facility] Last Admin: 01/02/19 10:18 Dose: Not Given Documented by: Medical - PN: A/P - Time Spent With Patient Total time spent is greater than 50% in coordination of care (as documented) at patient's floor/unit and/or counseling patient: 25 - 35 minutes (1) Bilateral pneumonia Status: Acute Assessment and plan: * Bilateral pneumonia-likely secondary to aspiration, continue aspiration precautions/antibiotic coverage. * Antipsychotic medications overdose (likely a combination of antipsychotic/antidepressant and H1 antagonist)-no significant QT elevation or evidence of hyperthermia or neuroleptic malignant syndrome. Continue telemetry monitoring for arrhythmias. Q consult * Altered mental status secondary to polypharmacy -clinically improving * Hypokalemia-continue aggressive IV and PO replacement as indicated * History of schizophrenia-restart antipsychotics * History of polysubstance abuse * Full code * Prophylaxis heparin Plan * Continue telemetry monitoring with close hemodynamic support * Aggressive potassium replacement * Crystalloid/nutrition support * Case management/behavioral health consult Current Visit: Yes Medical - PN: Qual - Stroke Symptom Onset Unknown: No - VTE Deep Vein Thrombosis/Pulmonary Embolism Present on Admission: No
[2019-01-02] MEDS: BUDESONIDE 0.5 MG/2 ML AMPUL.NEB NEB SCH ×2 (12:03→19:54)
[2019-01-02] MEDS: MELATONIN 3 MG TABLET PO SCH (20:48)
[2019-01-02] MEDS: CETIRIZINE 10 MG TABLET PO SCH (20:48)
[2019-01-02] MEDS: FAMOTIDINE 20 MG TABLET PO SCH (20:48)
[2019-01-02] MEDS: SENNOSIDES/DOCUSATE SODIUM 1 TAB TABLET PO SCH (20:49)
[2019-01-03] MEDS: LORazepam 2 MG/ML VIAL IV PRN ×4 (00:45→15:03)
[2019-01-03] MEDS: HALOPERIDOL LACTATE 5 MG/ML VIAL IM PRN ×3 (03:58→15:28)
[2019-01-03 05:35] LABS: Hemoglobin 11.1 g/dL (12.0-15.0); Mean Cell Volume 98.8 fL (80.0-100.0); Mean Corpuscular HGB Conc 32.7 g/dL (31.0-36.0); Mean Platelet Volume 8.5 fL (7.4-10.4); Platelet Count 488 K/mcL (140-440); RBC 3.44 M/mcL (4.00-5.20); Red Cell Distribution Width 13.8 % (11.5-14.5); WBC 12.4 K/mcL (4.5-11.0)
[2019-01-03] MEDS: metroNIDAZOLE 500 MG/100 ML BAG IV SCH ×3 (05:35→21:59)
[2019-01-03] MEDS: 0.9 % SODIUM CHLORIDE 10 ML SYRINGE IV SCH ×2 (05:36→14:01)
[2019-01-03 06:16] LABS: ALT/SGPT 20 U/l (0-40); AST/SGOT 20 U/l (0-37); Alkaline Phosphatase 62 U/L (39-117); Bilirubin,Direct < 0.2 mg/dL (0.0-0.3); Bilirubin,Total 0.2 mg/dL (0.0-1.0); Blood Urea Nitrogen 3 mg/dl (6-20); Calcium 9.6 mg/dl (8.6-10.4); Carbon Dioxide 23 mmol/L (22-30); Chloride 121 mmol/L (96-108); Globulin 3.1 gm/dL (2.2-3.7); Glomerular Filtration Rate 85; Glucose 111 mg/dL (70-105); Lactate Dehydrogenase 231 U/L (94-250); Phosphorous 2.4 mg/dL (2.7-4.5); Triglycerides 69 mg/dl (<150); Uric Acid 4.6 mg/dL (2.5-8.0)
[2019-01-03] MEDS: FOLIC ACID 1 MG TABLET PO SCH ×2 (06:39→07:57)
[2019-01-03] MEDS: DOCUSATE SODIUM 100 MG CAPSULE PO SCH ×3 (06:39→21:27)
[2019-01-03] MEDS: CYANOCOBALAMIN (VITAMIN B-12) 500 MCG TABLET PO SCH ×3 (06:39→21:27)
[2019-01-03] MEDS: MULTIVIT,THER IRON,CA,FA & MIN 1 TABLET PO SCH ×2 (06:39→07:57)
[2019-01-03] MEDS: LITHIUM CARBONATE 450 MG TAB.SR.12H PO SCH ×2 (06:40→07:57)
[2019-01-03] MEDS: THIAMINE 100 MG TABLET PO SCH ×2 (06:40→07:57)
[2019-01-03 06:49] LABS: Band Neutrophils % 3 % (0-10); Lymphocytes % 7 % (15-49); Monocytes % (Manual) 7 % (1-12); Platelet Estimate INCREASED (NORMAL); RBC Morphology NORMAL (NORMAL); Segmented Neutrophils % 83 % (38-78)
[2019-01-03] MEDS: POTASSIUM CHLORIDE 40 MEQ in DEXTROSE 5% IN WATER 500 ML IV PRN (07:40)
[2019-01-03] MEDS: BUDESONIDE 0.5 MG/2 ML AMPUL.NEB NEB SCH (07:48)
[2019-01-03] MEDS: HEPARIN 5,000 UNIT/ML VIAL SQ SCH ×2 (09:15→21:58)
[2019-01-03] MEDS: NEUTRA PHOS 1 PACKET PO SCH ×2 (09:15→21:23)
[2019-01-03] MEDS: LEVOFLOXACIN 750 MG/150 ML BAG IV SCH (09:15)
[2019-01-03] MEDS: ACETAMINOPHEN 700 MG/70 ML BOTTLE IV PRN (09:15)
[2019-01-03] MEDS ORDERED: diphenhydrAMINE 25 MG CAPSULE PO SCH (09:30)
[2019-01-03] MEDS: DEXTROSE 5%-1/4NS 1,000 ML IV SCH ×2 (10:20→21:58)
[2019-01-03] MEDS: 0.9 % SODIUM CHLORIDE 1,000 ML IV SCH (10:22)
--- NOTE | 2019-01-03 12:01 | Internal Med Progress Note ---
Medical - PN: Subj Patient information: Note initiated : 01/03/19 at 11:57 am Service Date, if different from initiated Date: [] Patient: Milka Castano a 53 y/o F admitted on 01/01/19 for Overdose. Chief Complaint: [] Interval history: Ms. Castano is a 53 year old F with a known history of paranoid schizophrenia/d epression/prior suicidal attempt who was brought into the ER by boyfriend with suspected multiple psychiatric medication overdose. She was brought in near unresponsive state. Patient carries a history of overdose in the past but her boyfriend does not think this was intentional. Most of the history was obtained from review of medical records and patient's boyfriend. Initial work-up in the ER was consistent with bilateral chest infiltrates suggestive of aspiration pneumonia. EKG did not reveal QT prolongation or evidence of arrhythmia. White count 15.9 potassium 2.6. Patient was started on antibiotics/IV potassium. Hospitalist service was consulted for admission in light of acute overdose At the time of evaluation no family members are present. Patient is confused and mumbling. Most of the history was obtained from review of medical records and ER physician. Patient has had a recent hospitalization at the mental health unit at [facility]. Patient carries significant history of schizophrenia/anxiety depression and is on multiple medications including lithium/baclofen/Haldol/Seroquel/Desyrel/Zonegran. It is unclear how many pills she consumed before being brought in unresponsive state. She is however hemodynamically stable without any signs of neuroleptic malignant syndrome or EKG changes. 01/02-patient on continuous watch post overdose. She is now more alert and responding to commands. Boyfriend at bedside and does not feel she is near baseline. Potassium on replacement current potassium 2.6. Restarted on home lithium/antipsychotics as patient has been agitated and cursing at nursing staff. No overnight fever. White count at 14 .7. On antibiotic coverage for bilateral pneumonia. 01/03-patient continues to be agitated and demonstrating brief episodes of psychotic behavior. Continues to yell and scream at the nurses. Hemodynamically stable. Low potassium on aggressive replacement, sodium at 156. Encourage free water intake. [facility] coordinating possible transfer to psych facility. Patient appears greatly disabled and boyfriend unable to take care of her if discharged home - Constitutional Vitals: Vital Signs Temp Pulse Resp BP Pulse Ox 99.2 F H 105 H 22 139/91 94 01/03/19 09:15 01/02/19 16:00 01/03/19 07:31 01/03/19 07:31 01/03/19 08:11 Period Temp Pulse Resp BP Sys/Guzman Pulse Ox Last 24 Hr 98.4 F-99.6 F 93-105 18-26 112-139/81-91 94-99 Intake and Output 01/02/19 01/03/19 01/03/19 21:59 05:59 13:59 Intake Total 1856 123 9624 Output Total 1602 652 704 Balance -362 -252 976 Weight 104 lb 8 oz Intake & Output: Intake & Output 01/02/19 01/03/19 01/03/19 21:59 05:59 13:59 Intake Total 8794 481 8654 Output Total 1602 652 704 Balance -362 -252 976 Weight 104 lb 8 oz Intake: IV 832 535 0275 Oral 1140 300 360 Output: Urine Catheter Amount 700 Void Amount 1600 650 # of times incontinent of urine 2 2 4 Other: Meal 2 bites magic cup Breakfast Percent of Meal Consumed 10% 25% Feeding Ability Total Assistance Urine Appearance Clear Clear Clear Straight Clear Urine Color Pale Pale Pale Straight Pale Urine Odor Normal Normal General appearance: moderate distress (Anxious) Exam: Mumbling and occasional agitation with psychotic behavior Tachycardia telemetry Nonlabored breathing Medical - PN: Obj Da - Labs CBC & Chem 7: 01/03/19 03:28 01/03/19 03:28 Labs: Abnormal Lab Results 01/03/19 01/03/19 01/02/19 03:28 03:28 03:27 WBC 12.4 H RBC 3.44 L Hgb 11.1 L Hct 34.0 L Plt Count 488 H Gran % Lymph % (Auto) Gran # Lymph # (Auto) Seg Neutrophils % 83 H Lymphocytes % 7 L Sodium 156 H Potassium 2.5 L* 2.6 L* Chloride 121 H BUN 3 L Glucose 111 H Phosphorus 2.4 L Total Protein 5.7 L Albumin 3.0 L 2.8 L Urine Occult Blood Ur Leukocyte Esterase Urine WBC 01/02/19 01/01/19 01/01/19 03:27 12:18 11:34 WBC 14.7 H RBC 3.30 L Hgb 10.7 L 15.9 H Hct 32.7 L Plt Count Gran % Lymph % (Auto) Gran # Lymph # (Auto) Seg Neutrophils % 86 H Lymphocytes % 6 L Sodium Potassium Chloride BUN Glucose Phosphorus Total Protein Albumin Urine Occult Blood 0.2 A Ur Leukocyte Esterase 500 A Urine WBC 10 H 01/01/19 01/01/19 11:00 11:00 WBC 15.9 H RBC 3.74 L Hgb Hct Plt Count Gran % 90.8 H Lymph % (Auto) 4.7 L Gran # 14.5 H Lymph # (Auto) 0.7 L Seg Neutrophils % Lymphocytes % Sodium Potassium 2.6 L* Chloride 95 L BUN Glucose Phosphorus Total Protein Albumin Urine Occult Blood Ur Leukocyte Esterase Urine WBC Meds: Medications Acetaminophen (Tylenol) 650 mg PO Q4-6HP PRN PRN Reason: PAIN/FEVER > 101 Acetaminophen (Tylenol) 650 mg PO TID [facility] Albuterol/Ipratropium (Duoneb) 3 ml NEB Q4HP PRN PRN Reason: Shortness Of Breath Last Admin: 01/01/19 20:34 Dose: 3 ml Documented by: Baclofen (Lioresal) 20 mg PO TID [facility] Budesonide (Pulmicort) 0.5 mg NEB Q12 [facility] Last Admin: 01/03/19 07:48 Dose: Not Given Documented by: Cetirizine HCl (Zyrtec) 10 mg PO HS [facility] Last Admin: 01/02/19 20:48 Dose: 10 mg Documented by: Cyanocobalamin (Vitamin B-12) 1,000 mcg PO BID [facility] Stop: 01/06/19 09:01 Last Admin: 01/03/19 07:57 Dose: Not Given Documented by: Diphenhydramine HCl (Benadryl) 25 mg PO HSP [facility] Docusate Sodium (Colace) 100 mg PO BID [facility] Last Admin: 01/03/19 07:57 Dose: Not Given Documented by: Famotidine (Pepcid) 20 mg PO HS [facility] Last Admin: 01/02/19 20:48 Dose: 20 mg Documented by: Folic Acid (Folic Acid) 1 mg PO DAILY [facility] Last Admin: 01/03/19 07:57 Dose: Not Given Documented by: Haloperidol (Haldol) 5 mg PO HS [facility] Haloperidol Lactate (Haldol) 5 mg IM Q6HP PRN PRN Reason: ANXIETY/SEDATION Last Admin: 01/03/19 09:40 Dose: 5 mg Documented by: Heparin Sodium (Porcine) (Heparin) 5,000 unit SQ Q12 [facility] Last Admin: 01/03/19 09:15 Dose: 5,000 unit Documented by: Potassium Chloride 40 meq/ (Dextrose) 520 mls @ 130 mls/hr IV UD PRN PRN Reason: K+ = or < 3.5 Last Admin: 01/03/19 07:40 Dose: 130 mls/hr Documented by: Levofloxacin (Levaquin) 750 mg in 150 mls @ 100 mls/hr IV Q24H [facility]; Protocol Last Infusion: 01/03/19 10:52 Dose: Infused Documented by: Magnesium Sulfate (Magnesium Sulfate) 2 gm in 50 mls @ 50 mls/hr IV UD PRN PRN Reason: MG = or < 1.7 Metronidazole (Flagyl) 500 mg in 100 mls @ 100 mls/hr IV Q8H [facility]; Protocol Last Infusion: 01/03/19 07:58 Dose: Infused Documented by: Acetaminophen (Ofirmev) 700 mg in 70 mls @ 140 mls/hr IV Q6HP PRN PRN Reason: PAIN/FEVER > 101 Last Infusion: 01/03/19 10:21 Dose: Infused Documented by: Dextrose/Sodium Chloride (Dextrose 5%-Sod Chloride 0.2%) 1,000 mls @ 100 mls/hr IV .Q10H [facility] Last Admin: 01/03/19 10:20 Dose: 100 mls/hr Documented by: Iron Carb/Multivit/[place]/Folic Acid (Multivitamin W/Minerals) 1 tab PO DAILY [facility] Last Admin: 01/03/19 07:57 Dose: Not Given Documented by: Lorazepam (Ativan) 1 mg IV Q4HP PRN PRN Reason: ANXIETY/SEDATION Last Admin: 01/03/19 10:51 Dose: 1 mg Documented by: Magnesium Hydroxide (Milk Of Magnesia) 30 ml PO HSP PRN PRN Reason: Constipation Melatonin (Melatonin 3mg Tablet) 3 mg PO HS [facility] Last Admin: 01/02/19 20:48 Dose: 3 mg Documented by: Ondansetron HCl (Zofran) 4 mg IV Q4-6HP PRN PRN Reason: Nausea And Vomiting Zonisamide [Zonegran (] 100 Mg Cap) 3 dose PO [facility] Potassium Chloride (Klor-Con) 40 meq PO DAILYP PRN PRN Reason: K+ < 3.5 Potassium Chlor[facility] (Pot[facility]) [facility] Potassium/Phosphorus/Sodium (Neutra Phos) 2 packet PO BID [facility] Last Admin: 01/03/19 09:15 Dose: 2 packet Documented by: Quetiapine Fumarate (Seroquel) 50 mg PO BID [facility] Quetiapine Fumarate (Seroquel) 300 mg PO [facility] Senna/Docusate Sodium (Senna Plus Tablet) 1 tab PO [facility] Last Admin: 01/02/19 20:49 Dose: Not Given Documented by: Sodium Chloride (Saline Flush) 10 ml IV Q8 [facility] Last Admin: 01/03/19 05:36 Dose: Not Given Documented by: Thiamine HCl (Vitamin B1) 100 mg PO DAILY [facility] Last Admin: 01/03/19 07:57 Dose: Not Given Documented by: Trazodone HCl (Desyrel) 100 mg PO [facility] Medical - PN: A/P - Time Spent With Patient Total time spent is greater than 50% in coordination of care (as documented) at patient's floor/unit and/or counseling patient: 25 - 35 minutes (1) Bilateral pneumonia Status: Acute Assessment and plan: * Bilateral pneumonia-likely secondary to aspiration, clinical improvement noted with downtrending white count. Continue aspiration precautions/antibiotic coverage. * Antipsychotic medications overdose (likely a combination of antipsychotic/antidepressant and H1 antagonist)-clinically resolved. Now back on usual home medications. [facility] consulted await further recommendations. Will likely be transferred to inpatient psych facility * Altered mental status secondary to polypharmacy -clinically improving * Hypokalemia-continue aggressive IV and PO replacement as indicated. 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 Hold lithium and start free water replacement(net deficit 3 L) * History of schizophrenia-continue home dose antipsychotics. * History of polysubstance abuse * Full code * Prophylaxis heparin Plan * Await further recommendations from [facility] for inpatient psych transfer * Hold lithium, restart home dose antipsychotics * Aggressive potassium replacement * Free water replacement * Crystalloid/nutrition support Current Visit: Yes Medical - PN: Qual - Stroke Symptom Onset Unknown: No - VTE Deep Vein Thrombosis/Pulmonary Embolism Present on Admission: No
[2019-01-03 13:42] LABS: POC Blood Urea Nitrogen 3 mg/dl (6-20); POC CO2 22 mmol/L (22-30); POC Calcium, Ionized 1.25 mmol/L (1.16-1.32); POC Chloride 127 mmol/L (96-108); POC Creatinine 0.9 mg/dl (0.6-1.1); POC Glucose, Random 96 mg/dL (70-105); POC Potassium 2.9 mmol/L (3.3-5.1); POC Sodium 159 mmol/L (133-145)
[2019-01-03] MEDS ORDERED: POTASSIUM CHLORIDE 20 MEQ PACKET PO STA (13:46)
[2019-01-03] MEDS: ACETAMINOPHEN 325 MG TABLET PO SCH ×2 (14:01→21:22)
[2019-01-03] MEDS: BACLOFEN 10 MG TABLET PO SCH ×2 (14:02→21:23)
[2019-01-03] MEDS: POTASSIUM CHLORIDE 20 MEQ/15 ML ML PT SCH (19:17)
[2019-01-03] MEDS: QUEtiapine 100 MG TABLET PO SCH (21:21)
[2019-01-03] MEDS: FAMOTIDINE 20 MG TABLET PO SCH (21:23)
[2019-01-03] MEDS: traZODone HCL 100 MG TABLET PO SCH (21:24)
[2019-01-03] MEDS: MELATONIN 3 MG TABLET PO SCH (21:26)
[2019-01-03] MEDS: HALOPERIDOL 5 MG TABLET PO SCH (21:27)
[2019-01-03] MEDS: CETIRIZINE 10 MG TABLET PO SCH (21:27)
[2019-01-03] MEDS: SENNOSIDES/DOCUSATE SODIUM 1 TAB TABLET PO SCH (21:28)
[2019-01-03] MEDS: ZONISAMIDE 100 MG PO SCH ×2 (21:28→21:59)
[2019-01-03] MEDS: QUEtiapine 25 MG TABLET PO SCH (21:28)
[2019-01-04] MEDS: BUDESONIDE 0.5 MG/2 ML AMPUL.NEB NEB SCH ×3 (00:45→20:37)
[2019-01-04] MEDS: traZODone HCL 100 MG TABLET PO SCH ×2 (00:56→19:48)
[2019-01-04] MEDS: HALOPERIDOL 5 MG TABLET PO SCH ×2 (00:56→19:48)
[2019-01-04] MEDS: QUEtiapine 25 MG TABLET PO SCH ×3 (00:56→19:48)
[2019-01-04] MEDS: QUEtiapine 100 MG TABLET PO SCH ×2 (00:57→21:51)
[2019-01-04] MEDS: BACLOFEN 10 MG TABLET PO SCH ×4 (00:58→19:48)
[2019-01-04] MEDS: MELATONIN 3 MG TABLET PO SCH ×2 (00:59→19:48)
[2019-01-04] MEDS: ZONISAMIDE 100 MG PO SCH ×2 (00:59→19:47)
[2019-01-04] MEDS: CETIRIZINE 10 MG TABLET PO SCH ×2 (00:59→21:51)
[2019-01-04] MEDS: ACETAMINOPHEN 325 MG TABLET PO SCH ×4 (00:59→19:48)
[2019-01-04] MEDS: NEUTRA PHOS 1 PACKET PO SCH ×3 (00:59→19:49)
[2019-01-04] MEDS: FAMOTIDINE 20 MG TABLET PO SCH ×2 (00:59→21:51)
[2019-01-04] MEDS: 0.9 % SODIUM CHLORIDE 10 ML SYRINGE IV SCH ×5 (01:00→20:10)
[2019-01-04] MEDS: ACETAMINOPHEN 700 MG/70 ML BOTTLE IV PRN (02:18)
[2019-01-04] MEDS: LORazepam 2 MG/ML VIAL IV PRN ×2 (05:32→19:56)
[2019-01-04] MEDS: metroNIDAZOLE 500 MG/100 ML BAG IV SCH ×3 (05:43→21:54)
[2019-01-04 06:04] LABS: Hematocrit 35.9 % (36.0-48.0); Hemoglobin 11.5 g/dL (12.0-15.0); Mean Corpuscular HGB Conc 32.1 g/dL (31.0-36.0); Mean Platelet Volume 7.8 fL (7.4-10.4); Platelet Count 621 K/mcL (140-440); RBC 3.59 M/mcL (4.00-5.20); Red Cell Distribution Width 15.3 % (11.5-14.5)
[2019-01-04 06:33] LABS: Band Neutrophils % 5 % (0-10); Eosinophils % (Manual) 1 % (0-7); Lymphocytes % 7 % (15-49); Monocytes % (Manual) 6 % (1-12); Platelet Estimate INCREASED (NORMAL); RBC Morphology NORMAL (NORMAL); Segmented Neutrophils % 81 % (38-78)
[2019-01-04 07:55] LABS: ALT/SGPT 18 U/l (0-40); AST/SGOT 21 U/l (0-37); Albumin 3.2 gm/dL (3.2-5.2); Alkaline Phosphatase 68 U/L (39-117); Bilirubin,Direct < 0.2 mg/dL (0.0-0.3); Bilirubin,Total < 0.2 mg/dL (0.0-1.0); Blood Urea Nitrogen 6 mg/dl (6-20); Calcium 9.6 mg/dl (8.6-10.4); Carbon Dioxide 23 mmol/L (22-30); Chloride 140 mmol/L (96-108); Globulin 3.3 gm/dL (2.2-3.7); Glomerular Filtration Rate 52; Glucose 114 mg/dL (70-105); Lactate Dehydrogenase 210 U/L (94-250); Phosphorous 3.8 mg/dL (2.7-4.5); Triglycerides 56 mg/dl (<150); Uric Acid 6.2 mg/dL (2.5-8.0)
[2019-01-04] MEDS ORDERED: DEXTROSE 5% IN WATER 1,000 ML IV SCH ×2 (08:00→08:14)
[2019-01-04] MEDS: FOLIC ACID 1 MG TABLET PO SCH (08:21)
[2019-01-04] MEDS: POTASSIUM CHLORIDE 20 MEQ/15 ML ML PT SCH ×2 (08:21→17:07)
[2019-01-04] MEDS: MULTIVIT,THER IRON,CA,FA & MIN 1 TABLET PO SCH (08:21)
[2019-01-04] MEDS: DOCUSATE SODIUM 100 MG CAPSULE PO SCH ×2 (08:22→20:08)
[2019-01-04] MEDS: LEVOFLOXACIN 750 MG/150 ML BAG IV SCH (08:25)
[2019-01-04] MEDS: CYANOCOBALAMIN (VITAMIN B-12) 500 MCG TABLET PO SCH ×2 (08:26→19:48)
[2019-01-04] MEDS: THIAMINE 100 MG TABLET PO SCH (08:26)
[2019-01-04] MEDS: HEPARIN 5,000 UNIT/ML VIAL SQ SCH ×2 (08:28→19:57)
[2019-01-04] MEDS ORDERED: 0.9 % SODIUM CHLORIDE 1,000 ML IV SCH (08:30)
[2019-01-04] MEDS: POTASSIUM CHLORIDE 40 MEQ in DEXTROSE 5% IN WATER 500 ML IV PRN (09:36)
--- NOTE | 2019-01-04 09:45 | Internal Med Progress Note ---
Medical - PN: Subj Patient information: Note initiated : 01/04/19 at 9:42 am Service Date, if different from initiated Date: [] Patient: Milka Castano a 53 y/o F admitted on 01/01/19 for Overdose. Chief Complaint: [] Interval history: Ms. Castano is a 53 year old F with a known history of paranoid schizophrenia/depression/prior suicidal attempt who was brought into the ER by boyfriend with suspected multiple psychiatric medication overdose. She was brought in near unresponsive state. Patient carries a history of overdose in the past but her boyfriend does not think this was intentional. Most of the history was obtained from review of medical records and patient's boyfriend. Initial work-up in the ER was consistent with bilateral chest infiltrates suggestive of aspiration pneumonia. EKG did not reveal QT prolongation or evidence of arrhythmia. White count 15.9 potassium 2.6. Patient was started on antibiotics/IV potassium. Hospitalist service was consulted for admission in light of acute overdose At the time of evaluation no family members are present. Patient is confused and mumbling. Most of the history was obtained from review of medical records and ER physician. Patient has had a recent hospitalization at the mental health unit at [facility]. Patient carries significant history of schizophrenia/anxiety depression and is on multiple medications including lithium/baclofen/Haldol/Seroquel/Desyrel/Zonegran. It is unclear how many pills she consumed before being brought in unresponsive state. She is however hemodynamically stable without any signs of neuroleptic malignant syndrome or EKG changes. 01/02-patient on continuous watch post overdose. She is now more alert and responding to commands. Boyfriend at bedside and does not feel she is near baseline. Potassium on replacement current potassium 2.6. Restarted on home lithium/antipsychotics as patient has been agitated and cursing at nursing staff. No overnight fever. White count at 14 .7. On antibiotic coverage for bilateral pneumonia. 01/03-patient continues to be agitated and demonstrating brief episodes of psychotic behavior. Continues to yell and scream at the nurses. Hemodynamically stable. Low potassium on aggressive replacement, sodium at 156. Encourage free water intake. [facility] coordinating possible transfer to psych facility. Patient appears greatly disabled and boyfriend unable to take care of her if discharged home 01/04-sodium at 175. Case discussed with nephrology. Nephrology recommends 1 L normal saline. Every 2 hours sodium along with urine and serum osm olality/sodium and potassium levels. Continue management as per nephrology. Patient remains confused and often mumbles. Stable hemodynamics. Cardiac around 100. Afebrile. On antibiotic coverage. [place] discontinued. - Constitutional Vitals: Vital Signs Temp Pulse Resp BP Pulse Ox 99.5 F H 105 H 20 133/83 97 01/04/19 07:24 01/04/19 07:24 01/04/19 07:24 01/04/19 07:11 01/04/19 07:24 Period Temp Pulse Resp BP Sys/Guzman Pulse Ox Last 24 Hr 98.4 F-101.0 F 77-105 17-25 121-149/79-102 96-98 Intake and Output 01/03/19 01/04/19 01/04/19 21:59 05:59 13:59 Intake Total 1620 100 100 Output Total 2101 1001 Balance -481 -901 100 Weight 99 lb Intake & Output: Intake & Output 01/03/19 01/04/19 01/04/19 21:59 05:59 13:59 Intake Total 1620 100 100 Output Total 2101 1001 Balance -481 -901 100 Weight 99 lb Intake: IV 1620 100 100 Dextrose 5%-Sod Chloride 0.2% 1 1000 ,000 ml @ 100 mls/hr IV .Q10H [facility] Rx#:[id number] Potassium Chloride 40 Meq In 520 Dextrose 5% in Water 500 ml @ 130 mls/hr IV UD PRN Rx#: [id number] Oral 0 Output: Void Amount 2100 1000 # of times incontinent of urine 1 1 Other: Urine Appearance Clear Straight Clear Urine Color Pale Straight Pale General appearance: no acute distress Exam: Tachycardia Confused nonlabored breathing Nondistended abdomen Incontinent Medical - PN: Obj Da - Labs CBC & Chem 7: 01/04/19 03:39 01/04/19 06:45 Labs: Abnormal Lab Results 01/04/19 01/04/19 01/04/19 06:45 06:45 03:39 WBC 13.0 H RBC 3.59 L Hgb 11.5 L Hct 35.9 L POC Hct RDW 15.3 H Plt Count 621 H Gran % Lymph % (Auto) Gran # Lymph # (Auto) Seg Neutrophils % 81 H Lymphocytes % 7 L POC Sodium Sodium 175 H* POC Potassium Potassium POC Chloride Chloride 140 H POC BUN BUN Creatinine 1.2 H Glucose 114 H Osmolality 355 H Phosphorus Total Protein Albumin Urine Occult Blood Ur Leukocyte Esterase Urine WBC 01/03/19 01/03/19 01/03/19 13:31 03:28 03:28 WBC 12.4 H RBC 3.44 L Hgb 11.1 L Hct 34.0 L POC Hct 32.0 L RDW Plt Count 488 H Gran % Lymph % (Auto) Gran # Lymph # (Auto) Seg Neutrophils % 83 H Lymphocytes % 7 L POC Sodium 159 H Sodium 156 H POC Potassium 2.9 L* Potassium 2.5 L* POC Chloride 127 H Chloride 121 H POC BUN 3 L BUN 3 L Creatinine Glucose 111 H Osmolality Phosphorus 2.4 L Total Protein Albumin 3.0 L Urine Occult Blood Ur Leukocyte Esterase Urine WBC 01/02/19 01/02/19 01/01/19 03:27 03:27 12:18 WBC 14.7 H RBC 3.30 L Hgb 10.7 L 15.9 H Hct 32.7 L POC Hct RDW Plt Count Gran % Lymph % (Auto) Gran # Lymph # (Auto) Seg Neutrophils % 86 H Lymphocytes % 6 L POC Sodium Sodium POC Potassium Potassium 2.6 L* POC Chloride Chloride POC BUN BUN Creatinine Glucose Osmolality Phosphorus Total Protein 5.7 L Albumin 2.8 L Urine Occult Blood Ur Leukocyte Esterase Urine WBC 01/01/19 01/01/19 01/01/19 11:34 11:00 11:00 WBC 15.9 H RBC 3.74 L Hgb Hct POC Hct RDW Plt Count Gran % 90.8 H Lymph % (Auto) 4.7 L Gran # 14.5 H Lymph # (Auto) 0.7 L Seg Neutrophils % Lymphocytes % POC Sodium Sodium POC Potassium Potassium 2.6 L* POC Chloride Chloride 95 L POC BUN BUN Creatinine Glucose Osmolality Phosphorus Total Protein Albumin Urine Occult Blood 0.2 A Ur Leukocyte Esterase 500 A Urine WBC 10 H Meds: Medications Acetaminophen (Tylenol) 650 mg PO Q4-6HP PRN PRN Reason: PAIN/FEVER > 101 Acetaminophen (Tylenol) 650 mg PO TID [facility] Last Admin: 01/04/19 08:25 Dose: Not Given Documented by: Albuterol/Ipratropium (Duoneb) 3 ml NEB Q4HP PRN PRN Reason: Shortness Of Breath Last Admin: 01/01/19 20:34 Dose: 3 ml Documented by: Baclofen (Lioresal) 20 mg PO TID [facility] Last Admin: 01/04/19 08:21 Dose: Not Given Documented by: Budesonide (Pulmicort) 0.5 mg NEB Q12 [facility] Last Admin: 01/04/19 07:29 Dose: Not Given Documented by: Cetirizine HCl (Zyrtec) 10 mg PO [facility] Last Admin: 01/04/19 00:59 Dose: Not Given Documented by: Cyanocobalamin (Vitamin B-12) 1,000 mcg PO BID [facility] Stop: 01/06/19 09:01 Last Admin: 01/04/19 08:26 Dose: Not Given Documented by: Diphenhydramine HCl (Benadryl) 25 mg PO HSP [facility] Docusate Sodium (Colace) 100 mg PO BID [facility] Last Admin: 01/04/19 08:22 Dose: Not Given Documented by: Famotidine (Pepcid) 20 mg PO [facility] Last Admin: 01/04/19 00:59 Dose: Not Given Documented by: Folic Acid (Folic Acid) 1 mg PO DAILY [facility] Last Admin: 01/04/19 08:21 Dose: Not Given Documented by: Haloperidol (Haldol) 5 mg PO [facility] Last Admin: 01/04/19 00:56 Dose: Not Given Documented by: Haloperidol Lactate (Haldol) 5 mg IM Q6HP PRN PRN Reason: ANXIETY/SEDATION Last Admin: 01/03/19 15:28 Dose: 5 mg Documented by: Heparin Sodium (Porcine) (Heparin) 5,000 unit SQ Q12 [facility] Last Admin: 01/04/19 08:28 Dose: 5,000 unit Documented by: Potassium Chloride 40 meq/ (Dextrose) 520 mls @ 130 mls/hr IV UD PRN PRN Reason: K+ = or < 3.5 Last Admin: 01/04/19 09:36 Dose: 130 mls/hr Documented by: Levofloxacin (Levaquin) 750 mg in 150 mls @ 100 mls/hr IV Q24H [facility]; Protocol Last Admin: 01/04/19 08:25 Dose: 100 mls/hr Documented by: Magnesium Sulfate (Magnesium Sulfate) 2 gm in 50 mls @ 50 mls/hr IV UD PRN PRN Reason: MG = or < 1.7 Metronidazole (Flagyl) 500 mg in 100 mls @ 100 mls/hr IV Q8H [facility]; Protocol Last Infusion: 01/04/19 08:26 Dose: Infused Documented by: Acetaminophen (Ofirmev) 700 mg in 70 mls @ 140 mls/hr IV Q6HP PRN PRN Reason: PAIN/FEVER > 101 Last Admin: 01/04/19 02:18 Dose: 140 mls/hr Documented by: Dextrose (Dextrose 5% In Water) 1,000 mls @ 150 mls/hr IV .Q6H40M [facility] Last Admin: 01/04/19 08:25 Dose: 150 mls/hr Documented by: Sodium Chloride (Sodium Chloride 0.9%) 1,000 mls @ 0 mls/hr IV BOLUS [facility] Last Admin: 01/04/19 08:32 Dose: 999 mls/hr Documented by: Iron Carb/Multivit/[place]/Folic Acid (Multivitamin W/Minerals) 1 tab PO DAILY [facility] Last Admin: 01/04/19 08:21 Dose: Not Given Documented by: Lorazepam (Ativan) 1 mg IV Q4HP PRN PRN Reason: ANXIETY/SEDATION Last Admin: 01/04/19 05:32 Dose: 1 mg Documented by: Magnesium Hydroxide (Milk Of Magnesia) 30 ml PO [facility] PRN PRN Reason: Constipation Melatonin (Melatonin 3mg Tablet) 3 mg PO [facility] Last Admin: 01/04/19 00:59 Dose: Not Given Documented by: Ondansetron HCl (Zofran) 4 mg IV Q4-6HP PRN PRN Reason: Nausea And Vomiting Zonisamide [Zonegran (] 100 Mg Cap) 3 dose PO [facility] Last Admin: 01/04/19 00:59 Dose: Not Given Documented by: Potassium Chloride (Klor-Con) 40 meq PO DAILYP PRN PRN Reason: K+ < 3.5 Potassium Chloride (Potassium Chloride) 40 meq PT BIDCC [facility] Last Admin: 01/04/19 08:21 Dose: Not Given Documented by: Potassium/Phosphorus/Sodium (Neutra Phos) 2 packet PO BID [facility] Last Admin: 01/04/19 08:25 Dose: Not Given Documented by: Quetiapine Fumarate (Seroquel) 50 mg PO BID [facility] Last Admin: 01/04/19 08:22 Dose: Not Given Documented by: Quetiapine Fumarate (Seroquel) 300 mg PO [facility] Last Admin: 01/04/19 00:57 Dose: Not Given Documented by: Senna/Docusate Sodium (Senna Plus Tablet) 1 tab PO [facility] Last Admin: 01/03/19 21:28 Dose: Not Given Documented by: Sodium Chloride (Saline Flush) 10 ml IV Q8 [facility] Last Admin: 01/04/19 05:43 Dose: 10 ml Documented by: Thiamine HCl (Vitamin B1) 100 mg PO DAILY [facility] Last Admin: 01/04/19 08:26 Dose: Not Given Documented by: Trazodone HCl (Desyrel) 100 mg PO [facility] Last Admin: 01/04/19 00:56 Dose: Not Given Documented by: Medical - PN: A/P - Time Spent With Patient Total time spent is greater than 50% in coordination of care (as documented) at patient's floor/unit and/or counseling patient: 25 - 35 minutes (1) Bilateral pneumonia Status: Acute Assessment and plan: * Symptomatic hyponatremia-possibly nephrogenic DI. Work-up ongoing. Nephrology consulted. Sodium 175. Continue management per nephrology, every 2 hours sodium checks * Bilateral pneumonia-likely secondary to aspiration, clinical improvement noted with downtrending white count. Continue aspiration precautions/antibiotic coverage. * Antipsychotic medications overdose (likely a combination of antipsyc hotic/antidepressant and H1 antagonist)-clinically resolved. Now back on usual home medications. [facility] consulted. Will likely be transferred to inpatient psych facility * Acute kidney injury with creatinine elevation 50% of baseline. Nephrology consulted * Acute change in mental status secondary to hyponatremia * Hypokalemia-continue aggressive IV and PO replacement as indicated. Repeat potassium 2.5 * History of schizophrenia-continue home dose antipsychotics. * History of polysubstance abuse * Full code * Prophylaxis heparin Plan * Nephrology consult * Hypernatremia management per nephrology * Continue to hold lithium * Electrolyte replacement per nephrology * Continue Free water replacement Current Visit: Yes Medical - PN: Qual - Stroke Symptom Onset Unknown: No - VTE Deep Vein Thrombosis/Pulmonary Embolism Present on Admission: No
--- NOTE | 2019-01-04 09:53 | Nephrology Consult Note ---
History of Present Illness - Reason for Consult Patient information: Note initiated : 01/04/19 at 9:49 am Service Date, if different from initiated Date: [] Patient: Milka Castano 53 y/o F admitted on 01/01/19 for Overdose. Chief Complaint: [] Consult date: 01/04/19 hypernatremia Requesting physician: Rusty Barbosa - Chief Complaint Hypernatremia - History of Present Illness 53-year-old female seen in consult for hyponatremia. History obtained from review of chart as well as discussion with the healthcare providers as the patient has altered mental status and cannot provide history. He has a history of paranoid schizophrenia/depression/prior suicidal attempt who was brought to the ED by her boyfriend on 01/01/2019 with suspected multiple psychiatric medication overdose. She was brought in the near unresponsive state. She has a history of overdose in the past. She was noted to have a white count of 15.9 with hypokalemia to 2.6. She received multiple doses of potassium since then and was started on antibiotics. Seems like her mental status improved for short period of time and then she became agitated. Review of Systems ROS unobtainable: due to mental status (Awake, in position. Does not answer questions, does not track, no interaction on exam.) Past History Past medical history: Schizophrenia, chronic pain, epileptic seizure Past surgical history: Unable to obtain as patient has altered mental status Past family history: Unable to obtain as patient has altered mental status Past social history: Unable to obtain as patient has altered mental status Medications and Allergies Home Medications Medication Instructions Recorded Confirmed Type Acetaminophen [Tylenol] 650 mg PO TID 01/01/19 01/01/19 History Baclofen [Lioresal] 20 mg PO TID 01/01/19 01/01/19 History Cetirizine [ZyrTEC] 10 mg PO HS 01/01/19 01/01/19 History Haloperidol [Haldol] 5 mg PO HS 01/01/19 01/01/19 History [place] Carbonate [Eskalith Cr] 450 mg PO BID 01/01/19 01/01/19 History Melatonin 5 mg PO HS 01/01/19 01/01/19 History QUEtiapine [SEROquel] 50 mg PO BID 01/01/19 01/01/19 History QUEtiapine [SEROquel] 300 mg PO HS 01/01/19 01/01/19 History Ranitidine HCl [Zantac] 150 mg PO HS 01/01/19 01/01/19 History Zonisamide [Zonegran] 300 mg PO HS 01/01/19 01/01/19 History diphenhydrAMINE [Benadryl] 25 mg PO [facility] 01/01/19 01/01/19 History traZODone HCL [Desyrel] 100 mg PO HS 01/01/19 01/01/19 History Allergies Allergy/AdvReac Type Severity Reaction Status Date / Time codeine Allergy Mild Hives Verified 01/01/19 15:04 Penicillins Allergy Mild Hives Verified 01/01/19 15:04 Sulfa (Sulfonamide Allergy Verified 01/01/19 10:41 Antibiotics) Exam - Vital Signs Vital signs: Temp Pulse Resp BP Pulse Ox 37.5 C H 105 H 20 133/83 97 01/04/19 07:24 01/04/19 07:24 01/04/19 07:24 01/04/19 07:11 01/04/19 07:24 - General Appearance General appearance: cachectic EENT: mucous membranes dry (Tachycardic) Cardiology: no rub, rapid rhythm Integumentary: warm and dry Neurologic: confused (Exam limited as the patient is not interacting.) Results - Lab Results 01/04/19 03:39 01/04/19 10:19 Most recent lab results Calcium 9.6 mg/dl (8.6-10.4) 01/04/19 06:45 Phosphorus 3.8 mg/dL (2.7-4.5) 01/04/19 06:45 Magnesium 2.2 mg/dL (1.6-2.5) 01/04/19 06:45 Assessment and Plan (1) Hypernatremia Status: Acute Priority: High (2) PUMA (acute kidney injury) Status: Acute Priority: Medium - Narrative A/P Narrative: The patient presented on 01/01/2019 with a serum potassium of 135. Sodium trended up as follows: 141 on the , 156 or (159 on istat) on the , 175 01/04/2019 at 6:45 AM. Documented I's and O's 14.5 L intake, 12 L output. The accuracy of the documentation was limited by the fact that the patient had a diaper. She is unable to cooperate and use a bedside commode. Her admission weight was documented as 47.5 and her most recent one is 44.9. Her exam is consistent with volume depletion. She is tachycardic with dry oral mucosa and dry skin. Her free water deficit is approximately 1.5 L. This is without taking into account the current water loss via urination, insensible losses. Her urine output is between 220 and 300 cc/h. 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 I recommend to stop lithium until the resolution of hypernatremia. I will follow-up on the urine studies including urine osmolality, sodium, potassium. Unfortunately her urine osmolality, sodium, potassium are still pending. Visual inspection shows very clear urine/diluted. The patient received 1 L bolus normal saline (per recommendation); at the time of my second visit she was receiving approximately 250 cc of D5 water between the D5 water infusion and the infusion of potassium chloride. Repeat serum sodium check done at noon was 173. Goal correction for today is 159 (i-STAT) or 156 regular chemistry via lab, as this is acute hypernatremia. Give 500 cc normal saline bolus, 500 cc D5 water bolus, 1 mcg of desmopressin IV, 40 mEq of potassium liquid p.o (per discussion with the nurse, the patient did not receive the scheduled p.o. potassium earlier today as she was not cooperating). In addition to that, she continues to receive D5 water with the potassium chloride infusion- This is a limited 500 cc bag. After the above infusion, please resume the D5 water at a rate that matches approximately 80% of her urine output. Further adjustment based on follow-up labs check serum sodium after she receives the bolus of D5 water and saline and every 2 hours afterwards. She should have serum potassium checked at least every 4 hours. The use of desmopressin is to 2 fold: Diagnostic and potentially therapeutic reason. If this is indeed nephrogenic diabetes insipidus, her urine output will not decrease in response to desmopressin. If her urine output does not decrease 2 hours after the first dose of desmopressin, please administer 2 mcg as a repeat dose. PUMA in the setting of volume depletion Hypokalemia managed as above This note is dictated after I saw the patient twice and recommended [place] placement with strict I's and O's. Please 40 minutes spent coordinating the patient's care
[2019-01-04] MEDS: DEXTROSE 5%-1/4NS 1,000 ML IV SCH (10:29)
[2019-01-04 10:39] LABS: POC Blood Urea Nitrogen < 3 mg/dl (6-20); POC CO2 22 mmol/L (22-30); POC Calcium, Ionized 1.25 mmol/L (1.16-1.32); POC Chloride 138 mmol/L (96-108); POC Creatinine 1.1 mg/dl (0.6-1.1); POC Glucose, Random 147 mg/dL (70-105); POC Sodium 173 mmol/L (133-145)
[2019-01-04 11:33] LABS: ALT/SGPT 17 U/l (0-40); AST/SGOT 18 U/l (0-37); Albumin 3.1 gm/dL (3.2-5.2); Albumin/Globulin Ratio 1.1 (1.0-2.3); Alkaline Phosphatase 63 U/L (39-117); Bilirubin,Direct < 0.2 mg/dL (0.0-0.3); Bilirubin,Total < 0.2 mg/dL (0.0-1.0); Blood Urea Nitrogen 6 mg/dl (6-20); Carbon Dioxide 22 mmol/L (22-30); Chloride 141 mmol/L (96-108); Globulin 2.7 gm/dL (2.2-3.7); Glomerular Filtration Rate 58; Glucose 148 mg/dL (70-105); Lactate Dehydrogenase 194 U/L (94-250); Phosphorous 3.3 mg/dL (2.7-4.5); Triglycerides 48 mg/dl (<150); Uric Acid 5.5 mg/dL (2.5-8.0)
[2019-01-04] MEDS ORDERED: DESMOPRESSIN ACETATE 1 MCG in 0.9 % SODIUM CHLORIDE 50 ML IV ONE (12:13)
[2019-01-04 12:16] LABS: POC Blood Urea Nitrogen < 3 mg/dl (6-20); POC CO2 21 mmol/L (22-30); POC Calcium, Ionized 1.21 mmol/L (1.16-1.32); POC Chloride 139 mmol/L (96-108); POC Creatinine 1.1 mg/dl (0.6-1.1); POC Glucose, Random 121 mg/dL (70-105); POC Potassium 3.5 mmol/L (3.3-5.1); POC Sodium 173 mmol/L (133-145)
[2019-01-04] MEDS ORDERED: 0.9 % SODIUM CHLORIDE 500 ML IV ONE (12:21)
[2019-01-04] MEDS ORDERED: POTASSIUM CHLORIDE 20 MEQ/15 ML ML PO ONE (12:22)
[2019-01-04] MEDS ORDERED: DEXTROSE 5% IN WATER 500 ML IV SCH (12:26)
[2019-01-04 14:11] LABS: POC Blood Urea Nitrogen < 3 mg/dl (6-20); POC CO2 19 mmol/L (22-30); POC Calcium, Ionized 1.21 mmol/L (1.16-1.32); POC Chloride 131 mmol/L (96-108); POC Glucose, Random 247 mg/dL (70-105); POC Potassium 3.7 mmol/L (3.3-5.1); POC Sodium 163 mmol/L (133-145)
[2019-01-04 16:02] LABS: Potassium,Urine Random 65.9 mmol/L
[2019-01-04 16:13] LABS: POC Blood Urea Nitrogen < 3 mg/dl (6-20); POC CO2 19 mmol/L (22-30); POC Calcium, Ionized 1.16 mmol/L (1.16-1.32); POC Chloride 129 mmol/L (96-108); POC Glucose, Random 97 mg/dL (70-105); POC Potassium 3.5 mmol/L (3.3-5.1); POC Sodium 160 mmol/L (133-145)
[2019-01-04 18:12] LABS: POC Blood Urea Nitrogen < 3 mg/dl (6-20); POC CO2 19 mmol/L (22-30); POC Calcium, Ionized 1.17 mmol/L (1.16-1.32); POC Chloride 129 mmol/L (96-108); POC Creatinine 1.1 mg/dl (0.6-1.1); POC Glucose, Random 127 mg/dL (70-105); POC Potassium 4.4 mmol/L (3.3-5.1); POC Sodium 161 mmol/L (133-145)
[2019-01-04] MEDS: SENNOSIDES/DOCUSATE SODIUM 1 TAB TABLET PO SCH (20:10)
[2019-01-04] MEDS ORDERED: DEXTROSE 5% IN WATER 250 ML IV ONE (21:35)
[2019-01-04] MEDS ORDERED: WATER IV ONE (21:45)
[2019-01-04] MEDS ORDERED: DEXTROSE 5% IV ONE (21:45)
[2019-01-05 01:41] LABS: Blood Urea Nitrogen 4 mg/dl (6-20); Calcium 8.2 mg/dl (8.6-10.4); Carbon Dioxide 20 mmol/L (22-30); Chloride 130 mmol/L (96-108); Glomerular Filtration Rate 65; Glucose 152 mg/dL (70-105)
[2019-01-05] MEDS: LORazepam 2 MG/ML VIAL IV PRN ×2 (05:13→12:02)
[2019-01-05] MEDS: metroNIDAZOLE 500 MG/100 ML BAG IV SCH ×3 (05:40→22:30)
[2019-01-05] MEDS: 0.9 % SODIUM CHLORIDE 10 ML SYRINGE IV SCH ×3 (05:41→22:31)
[2019-01-05 05:56] LABS: Hematocrit 30.6 % (36.0-48.0); Hemoglobin 9.8 g/dL (12.0-15.0); Mean Platelet Volume 7.8 fL (7.4-10.4); Platelet Count 483 K/mcL (140-440); RBC 3.06 M/mcL (4.00-5.20); Red Cell Distribution Width 15.3 % (11.5-14.5)
[2019-01-05 06:39] LABS: ALT/SGPT 15 U/l (0-40); AST/SGOT 15 U/l (0-37); Albumin 2.7 gm/dL (3.2-5.2); Albumin/Globulin Ratio 1.1 (1.0-2.3); Alkaline Phosphatase 56 U/L (39-117); Bilirubin,Direct < 0.2 mg/dL (0.0-0.3); Bilirubin,Total 0.2 mg/dL (0.0-1.0); Blood Urea Nitrogen 4 mg/dl (6-20); Calcium 8.4 mg/dl (8.6-10.4); Carbon Dioxide 20 mmol/L (22-30); Chloride 130 mmol/L (96-108); Globulin 2.5 gm/dL (2.2-3.7); Glomerular Filtration Rate 65; Glucose 95 mg/dL (70-105); Lactate Dehydrogenase 182 U/L (94-250); Phosphorous 4.3 mg/dL (2.7-4.5); Triglycerides 65 mg/dl (<150); Uric Acid 4.1 mg/dL (2.5-8.0)
[2019-01-05 07:01] LABS: Acanthocytes FEW (NONE SEEN); Band Neutrophils % 2 % (0-10); Eosinophils % (Manual) 6 % (0-7); Hypochromasia 1+ (NONE SEEN); Lymphocytes % 24 % (15-49); Monocytes % (Manual) 6 % (1-12); Platelet Estimate INCREASED (NORMAL); Poikilocytosis 1+ (NONE SEEN); RBC Fragments RARE (NONE SEEN); RBC Morphology ABNORM (NORMAL); Segmented Neutrophils % 62 % (38-78)
[2019-01-05] MEDS ORDERED: DEXTROSE 5% IN WATER 300 ML IV ONE (07:05)
[2019-01-05] MEDS: POTASSIUM CHLORIDE 20 MEQ/15 ML ML PT SCH ×3 (08:39→17:39)
[2019-01-05] MEDS: NEUTRA PHOS 1 PACKET PO SCH ×3 (08:40→21:30)
[2019-01-05] MEDS: ACETAMINOPHEN 325 MG TABLET PO SCH ×4 (08:40→21:31)
[2019-01-05] MEDS: QUEtiapine 25 MG TABLET PO SCH ×3 (08:40→21:33)
[2019-01-05] MEDS: DOCUSATE SODIUM 100 MG CAPSULE PO SCH ×3 (08:40→21:30)
[2019-01-05] MEDS: MULTIVIT,THER IRON,CA,FA & MIN 1 TABLET PO SCH ×2 (08:40→10:14)
[2019-01-05] MEDS: BACLOFEN 10 MG TABLET PO SCH ×4 (08:40→21:32)
[2019-01-05] MEDS: FOLIC ACID 1 MG TABLET PO SCH ×2 (08:40→10:13)
--- NOTE | 2019-01-05 08:41 | Cat Scan Report ---
History: Overdose, fell and hit head, decreased level of consciousness TECHNIQUE: The brain was imaged without contrast at 2.5 mm intervals. Sagittal and coronal reformats were created. The radiation exposure was limited using dose reduction technology. FINDINGS: There is a very small scalp hematoma lateral to the left frontal bone. No skull fracture is present. There is no intracranial hemorrhage, edema, infarct or mass effect. The ventricles and cisterns are normal. Comparison with the prior exam from 01/01/19 shows no change in appearance of the brain. IMPRESSION: Normal brain Interpreted and Authenticated by: Hal Marrero 01/05/19
[2019-01-05] MEDS: THIAMINE 100 MG TABLET PO SCH ×2 (08:46→10:14)
[2019-01-05] MEDS: CYANOCOBALAMIN (VITAMIN B-12) 500 MCG TABLET PO SCH ×3 (08:46→21:30)
[2019-01-05] MEDS: HEPARIN 5,000 UNIT/ML VIAL SQ SCH ×2 (08:46→21:29)
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
[2019-01-05] MEDS: LEVOFLOXACIN 750 MG/150 ML BAG IV SCH (08:56)
[2019-01-05] MEDS: BUDESONIDE 0.5 MG/2 ML AMPUL.NEB NEB SCH ×2 (09:32→21:00)
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
[2019-01-05] MEDS ORDERED: DESMOPRESSIN ACETATE 1 MCG in 0.9 % SODIUM CHLORIDE 50 ML IV ONE (16:04)
[2019-01-05 18:16] LABS: Potassium,Urine Random 15.1 mmol/L
[2019-01-05] MEDS ORDERED: DEXTROSE 5% IN WATER 500 ML IV ONE (19:00)
[2019-01-05] MEDS ORDERED: DEXTROSE 5% IN WATER 1,000 ML IV ONE ×2 (19:00→21:55)
[2019-01-05] MEDS: traZODone HCL 100 MG TABLET PO SCH (21:29)
[2019-01-05] MEDS: SENNOSIDES/DOCUSATE SODIUM 1 TAB TABLET PO SCH (21:30)
[2019-01-05] MEDS: QUEtiapine 100 MG TABLET PO SCH (21:32)
[2019-01-05] MEDS: MELATONIN 3 MG TABLET PO SCH (21:32)
[2019-01-05] MEDS: HALOPERIDOL 5 MG TABLET PO SCH (21:32)
[2019-01-05] MEDS: CETIRIZINE 10 MG TABLET PO SCH (21:32)
[2019-01-05] MEDS: FAMOTIDINE 20 MG TABLET PO SCH (21:32)
[2019-01-05] MEDS: ZONISAMIDE 100 MG PO SCH (21:38)
[2019-01-06] MEDS: metroNIDAZOLE 500 MG/100 ML BAG IV SCH ×3 (05:53→22:08)
[2019-01-06] MEDS: 0.9 % SODIUM CHLORIDE 10 ML SYRINGE IV SCH ×3 (05:54→22:10)
[2019-01-06 06:09] LABS: Hematocrit 31.4 % (36.0-48.0); Hemoglobin 10.1 g/dL (12.0-15.0); Mean Cell Volume 99.8 fL (80.0-100.0); Mean Platelet Volume 8.1 fL (7.4-10.4); Platelet Count 434 K/mcL (140-440); RBC 3.15 M/mcL (4.00-5.20); Red Cell Distribution Width 15.4 % (11.5-14.5); WBC 9.8 K/mcL (4.5-11.0)
[2019-01-06 06:25] LABS: ALT/SGPT 13 U/l (0-40); AST/SGOT 13 U/l (0-37); Albumin 2.6 gm/dL (3.2-5.2); Alkaline Phosphatase 52 U/L (39-117); Bilirubin,Direct < 0.2 mg/dL (0.0-0.3); Bilirubin,Total 0.2 mg/dL (0.0-1.0); Blood Urea Nitrogen 4 mg/dl (6-20); Calcium 8.5 mg/dl (8.6-10.4); Carbon Dioxide 22 mmol/L (22-30); Chloride 118 mmol/L (96-108); Globulin 2.5 gm/dL (2.2-3.7); Glomerular Filtration Rate 74; Glucose 81 mg/dL (70-105); Lactate Dehydrogenase 208 U/L (94-250); Phosphorous 4.4 mg/dL (2.7-4.5); Triglycerides 95 mg/dl (<150)
[2019-01-06 06:42] LABS: Band Neutrophils % 9 % (0-10); Basophils % (Manual) 1 % (0-2); Eosinophils % (Manual) 4 % (0-7); Lymphocytes % 28 % (15-49); Monocytes % (Manual) 7 % (1-12); Platelet Estimate NORMAL (NORMAL); RBC Morphology NORMAL (NORMAL); Segmented Neutrophils % 51 % (38-78)
[2019-01-06] MEDS ORDERED: DESMOPRESSIN ACETATE 1 MCG in 0.9 % SODIUM CHLORIDE 50 ML IV ONE ×2 (07:00→18:18)
[2019-01-06] MEDS ORDERED: DEXTROSE 5% IN WATER 1,000 ML IV ONE (07:00)
[2019-01-06] MEDS: LORazepam 2 MG/ML VIAL IV PRN ×2 (07:49→18:13)
[2019-01-06] MEDS: POTASSIUM CHLORIDE 20 MEQ/15 ML ML PT SCH ×2 (08:24→17:27)
[2019-01-06] MEDS: BUDESONIDE 0.5 MG/2 ML AMPUL.NEB NEB SCH ×2 (09:09→21:15)
[2019-01-06] MEDS: MULTIVIT,THER IRON,CA,FA & MIN 1 TABLET PO SCH (09:16)
[2019-01-06] MEDS: THIAMINE 100 MG TABLET PO SCH (09:16)
[2019-01-06] MEDS: BACLOFEN 10 MG TABLET PO SCH ×3 (09:16→19:51)
[2019-01-06] MEDS: DOCUSATE SODIUM 100 MG CAPSULE PO SCH ×3 (09:17→21:18)
[2019-01-06] MEDS: QUEtiapine 25 MG TABLET PO SCH ×2 (09:17→19:50)
[2019-01-06] MEDS: ACETAMINOPHEN 325 MG TABLET PO SCH ×4 (09:18→21:18)
[2019-01-06] MEDS: HEPARIN 5,000 UNIT/ML VIAL SQ SCH ×2 (09:18→21:11)
[2019-01-06] MEDS: LEVOFLOXACIN 750 MG/150 ML BAG IV SCH (09:18)
[2019-01-06] MEDS: FOLIC ACID 1 MG TABLET PO SCH (09:18)
[2019-01-06] MEDS: NEUTRA PHOS 1 PACKET PO SCH ×2 (09:18→19:50)
[2019-01-06] MEDS: CYANOCOBALAMIN (VITAMIN B-12) 500 MCG TABLET PO SCH (09:22)
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
[2019-01-06] MEDS: DEXTROSE 5% IN WATER 1,000 ML IV SCH ×3 (09:42→23:57)
[2019-01-06 12:11] LABS: POC Blood Urea Nitrogen 3 mg/dl (6-20); POC CO2 21 mmol/L (22-30); POC Calcium, Ionized 1.15 mmol/L (1.16-1.32); POC Chloride 116 mmol/L (96-108); POC Creatinine 0.9 mg/dl (0.6-1.1); POC Glucose, Random 140 mg/dL (70-105); POC Potassium 3.3 mmol/L (3.3-5.1); POC Sodium 153 mmol/L (133-145)
[2019-01-06 16:54] LABS: POC Blood Urea Nitrogen 4 mg/dl (6-20); POC CO2 21 mmol/L (22-30); POC Calcium, Ionized 1.17 mmol/L (1.16-1.32); POC Chloride 117 mmol/L (96-108); POC Creatinine 0.9 mg/dl (0.6-1.1); POC Glucose, Random 114 mg/dL (70-105); POC Potassium 3.5 mmol/L (3.3-5.1); POC Sodium 152 mmol/L (133-145)
[2019-01-06] MEDS: QUEtiapine 100 MG TABLET PO SCH (19:49)
[2019-01-06] MEDS: ZONISAMIDE 100 MG PO SCH ×2 (19:49→21:16)
[2019-01-06] MEDS: CETIRIZINE 10 MG TABLET PO SCH ×2 (19:49→21:19)
[2019-01-06] MEDS: FAMOTIDINE 20 MG TABLET PO SCH ×2 (19:51→21:18)
[2019-01-06] MEDS: MELATONIN 3 MG TABLET PO SCH ×2 (19:51→21:15)
[2019-01-06] MEDS: traZODone HCL 100 MG TABLET PO SCH ×2 (19:51→22:09)
[2019-01-06] MEDS: HALOPERIDOL 5 MG TABLET PO SCH (19:51)
[2019-01-06] MEDS: SENNOSIDES/DOCUSATE SODIUM 1 TAB TABLET PO SCH ×2 (19:52→22:09)
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
[2019-01-07] MEDS: NEUTRA PHOS 1 PACKET PO SCH ×3 (00:26→20:45)
[2019-01-07] MEDS: DEXTROSE 5% IN WATER 1,000 ML IV SCH ×2 (01:16→11:40)
[2019-01-07 03:57] LABS: POC Blood Urea Nitrogen 4 mg/dl (6-20); POC CO2 21 mmol/L (22-30); POC Calcium, Ionized 1.11 mmol/L (1.16-1.32); POC Chloride 114 mmol/L (96-108); POC Creatinine 0.8 mg/dl (0.6-1.1); POC Glucose, Random 111 mg/dL (70-105); POC Sodium 148 mmol/L (133-145)
[2019-01-07] MEDS: ACETAMINOPHEN 700 MG/70 ML BOTTLE IV PRN (04:02)
[2019-01-07] MEDS ORDERED: POTASSIUM CHLORIDE 20 MEQ/10 ML VIAL IV ONE ×2 (04:51→21:25)
[2019-01-07] MEDS: DESMOPRESSIN ACETATE 1 MCG in 0.9 % SODIUM CHLORIDE 50 ML IV SCH ×2 (05:13→11:39)
[2019-01-07] MEDS: LORazepam 2 MG/ML VIAL IV PRN (05:17)
[2019-01-07] MEDS: metroNIDAZOLE 500 MG/100 ML BAG IV SCH ×3 (05:56→23:49)
[2019-01-07] MEDS: 0.9 % SODIUM CHLORIDE 10 ML SYRINGE IV SCH ×4 (07:25→21:57)
[2019-01-07] MEDS: ACETAMINOPHEN 325 MG TABLET PO SCH ×3 (09:36→21:55)
[2019-01-07] MEDS: BACLOFEN 10 MG TABLET PO SCH ×3 (09:37→20:50)
[2019-01-07] MEDS: THIAMINE 100 MG TABLET PO SCH (09:38)
[2019-01-07] MEDS: MULTIVIT,THER IRON,CA,FA & MIN 1 TABLET PO SCH (09:38)
[2019-01-07] MEDS: QUEtiapine 25 MG TABLET PO SCH ×3 (09:38→20:31)
[2019-01-07] MEDS: DOCUSATE SODIUM 100 MG CAPSULE PO SCH ×2 (09:39→21:55)
[2019-01-07] MEDS: FOLIC ACID 1 MG TABLET PO SCH (09:39)
[2019-01-07] MEDS: HEPARIN 5,000 UNIT/ML VIAL SQ SCH ×2 (09:39→20:49)
[2019-01-07] MEDS: LEVOFLOXACIN 750 MG/150 ML BAG IV SCH (09:39)
[2019-01-07] MEDS: POTASSIUM CHLORIDE 20 MEQ/15 ML ML PO SCH ×2 (09:39→17:49)
[2019-01-07 10:08] LABS: POC Blood Urea Nitrogen 4 mg/dl (6-20); POC CO2 19 mmol/L (22-30); POC Calcium, Ionized 1.14 mmol/L (1.16-1.32); POC Chloride 109 mmol/L (96-108); POC Creatinine 0.8 mg/dl (0.6-1.1); POC Glucose, Random 129 mg/dL (70-105); POC Potassium 3.1 mmol/L (3.3-5.1); POC Sodium 144 mmol/L (133-145)
[2019-01-07] MEDS ORDERED: DEXTROSE 5% IN WATER 1,000 ML IV SCH (10:30)
[2019-01-07] MEDS: BUDESONIDE 0.5 MG/2 ML AMPUL.NEB NEB SCH ×2 (11:38→21:16)
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
[2019-01-07 16:21] LABS: POC Blood Urea Nitrogen 6 mg/dl (6-20); POC CO2 20 mmol/L (22-30); POC Calcium, Ionized 1.15 mmol/L (1.16-1.32); POC Chloride 109 mmol/L (96-108); POC Creatinine 0.8 mg/dl (0.6-1.1); POC Glucose, Random 81 mg/dL (70-105); POC Potassium 3.4 mmol/L (3.3-5.1); POC Sodium 142 mmol/L (133-145)
[2019-01-07] MEDS ORDERED: DESMOPRESSIN ACETATE 1 MCG in 0.9 % SODIUM CHLORIDE 50 ML IV SCH (17:00)
[2019-01-07] MEDS: HALOPERIDOL 5 MG TABLET PO SCH ×2 (18:09→20:30)
[2019-01-07] MEDS: QUEtiapine 100 MG TABLET PO SCH ×2 (18:10→20:32)
[2019-01-07] MEDS: MELATONIN 3 MG TABLET PO SCH ×2 (18:10→20:31)
[2019-01-07] MEDS: CETIRIZINE 10 MG TABLET PO SCH ×2 (18:11→21:56)
[2019-01-07] MEDS: traZODone HCL 100 MG TABLET PO SCH ×2 (18:11→20:30)
[2019-01-07] MEDS ORDERED: POTASSIUM CHLORIDE 20 MEQ in DEXTROSE 5% IN WATER 250 ML IV ONE (20:43)
[2019-01-07] MEDS: FAMOTIDINE 20 MG TABLET PO SCH (20:50)
[2019-01-07] MEDS: NYSTATIN 500,000 UNITS/5 ML ORAL.SUSP SSW SCH (21:41)
[2019-01-07] MEDS: ZONISAMIDE 100 MG PO SCH (21:55)
[2019-01-07] MEDS: SENNOSIDES/DOCUSATE SODIUM 1 TAB TABLET PO SCH (21:55)
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
[2019-01-08 00:09] LABS: POC Blood Urea Nitrogen 7 mg/dl (6-20); POC CO2 20 mmol/L (22-30); POC Calcium, Ionized 1.03 mmol/L (1.16-1.32); POC Chloride 109 mmol/L (96-108); POC Creatinine 0.9 mg/dl (0.6-1.1); POC Glucose, Random 117 mg/dL (70-105); POC Potassium 3.3 mmol/L (3.3-5.1); POC Sodium 140 mmol/L (133-145)
[2019-01-08] MEDS ORDERED: DEXTROSE 5% IN WATER 1,000 ML IV ONE (02:30)
[2019-01-08] MEDS: ACETAMINOPHEN 700 MG/70 ML BOTTLE IV PRN (03:59)
[2019-01-08] MEDS: metroNIDAZOLE 500 MG/100 ML BAG IV SCH ×3 (05:30→22:07)
[2019-01-08] MEDS: 0.9 % SODIUM CHLORIDE 10 ML SYRINGE IV SCH ×3 (05:36→21:40)
[2019-01-08] MEDS ORDERED: DESMOPRESSIN ACETATE 1 MCG in 0.9 % SODIUM CHLORIDE 50 ML IV ONE (06:00)
[2019-01-08] MEDS: NEUTRA PHOS 1 PACKET PO SCH ×2 (07:51→22:02)
[2019-01-08 08:36] LABS: POC Blood Urea Nitrogen 7 mg/dl (6-20); POC CO2 20 mmol/L (22-30); POC Calcium, Ionized 1.19 mmol/L (1.16-1.32); POC Chloride 108 mmol/L (96-108); POC Creatinine 0.8 mg/dl (0.6-1.1); POC Glucose, Random 83 mg/dL (70-105); POC Potassium 3.5 mmol/L (3.3-5.1); POC Sodium 141 mmol/L (133-145)
[2019-01-08] MEDS: MULTIVIT,THER IRON,CA,FA & MIN 1 TABLET PO SCH (08:36)
[2019-01-08] MEDS: FOLIC ACID 1 MG TABLET PO SCH (08:36)
[2019-01-08] MEDS: BACLOFEN 10 MG TABLET PO SCH ×3 (08:36→21:37)
[2019-01-08] MEDS: QUEtiapine 25 MG TABLET PO SCH ×2 (08:36→21:38)
[2019-01-08] MEDS: NYSTATIN 500,000 UNITS/5 ML ORAL.SUSP SSW SCH ×4 (08:37→21:36)
[2019-01-08] MEDS: THIAMINE 100 MG TABLET PO SCH (08:37)
[2019-01-08] MEDS: HEPARIN 5,000 UNIT/ML VIAL SQ SCH ×2 (08:37→21:36)
[2019-01-08] MEDS: DOCUSATE SODIUM 100 MG CAPSULE PO SCH ×2 (08:37→21:39)
[2019-01-08] MEDS: LEVOFLOXACIN 750 MG/150 ML BAG IV SCH (09:06)
[2019-01-08] MEDS: BUDESONIDE 0.5 MG/2 ML AMPUL.NEB NEB SCH (09:06)
[2019-01-08] MEDS: POTASSIUM CHLORIDE 20 MEQ/15 ML ML PO SCH (10:04)
[2019-01-08] MEDS: ACETAMINOPHEN 325 MG TABLET PO SCH ×3 (10:50→21:38)
[2019-01-08] MEDS ORDERED: CALCIUM CARBONATE 500 MG TAB.CHEW CHEWED PRN (11:13)
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
[2019-01-08] MEDS: POTASSIUM CHLORIDE 10 MEQ TABLET PO SCH (17:13)
[2019-01-08 19:08] LABS: POC Blood Urea Nitrogen 9 mg/dl (6-20); POC CO2 21 mmol/L (22-30); POC Calcium, Ionized 1.15 mmol/L (1.16-1.32); POC Chloride 105 mmol/L (96-108); POC Creatinine 0.8 mg/dl (0.6-1.1); POC Glucose, Random 125 mg/dL (70-105); POC Potassium 3.2 mmol/L (3.3-5.1); POC Sodium 139 mmol/L (133-145)
[2019-01-08] MEDS: HALOPERIDOL 5 MG TABLET PO SCH (21:37)
[2019-01-08] MEDS: traZODone HCL 100 MG TABLET PO SCH (21:37)
[2019-01-08] MEDS: MELATONIN 3 MG TABLET PO SCH (21:37)
[2019-01-08] MEDS: QUEtiapine 100 MG TABLET PO SCH (21:38)
[2019-01-08] MEDS: CETIRIZINE 10 MG TABLET PO SCH (21:39)
[2019-01-08] MEDS: FAMOTIDINE 20 MG TABLET PO SCH (21:40)
[2019-01-08] MEDS: SENNOSIDES/DOCUSATE SODIUM 1 TAB TABLET PO SCH (21:40)
[2019-01-08] MEDS ORDERED: POTASSIUM CHLORIDE 20 MEQ TABLET PO ONE ×2 (21:41→21:45)
[2019-01-08] MEDS: ZONISAMIDE 100 MG PO SCH (22:07)
[2019-01-09] MEDS: metroNIDAZOLE 500 MG/100 ML BAG IV SCH (05:10)
[2019-01-09] MEDS: 0.9 % SODIUM CHLORIDE 10 ML SYRINGE IV SCH ×2 (05:10→13:26)
[2019-01-09] MEDS: POTASSIUM CHLORIDE 10 MEQ TABLET PO SCH (09:05)
[2019-01-09] MEDS: HEPARIN 5,000 UNIT/ML VIAL SQ SCH (09:05)
[2019-01-09] MEDS: FOLIC ACID 1 MG TABLET PO SCH (09:05)
[2019-01-09] MEDS: DOCUSATE SODIUM 100 MG CAPSULE PO SCH (09:05)
[2019-01-09] MEDS: LEVOFLOXACIN 750 MG/150 ML BAG IV SCH (09:06)
[2019-01-09] MEDS: BACLOFEN 10 MG TABLET PO SCH (09:06)
[2019-01-09] MEDS: NEUTRA PHOS 1 PACKET PO SCH (09:07)
[2019-01-09] MEDS: ACETAMINOPHEN 325 MG TABLET PO SCH (09:07)
[2019-01-09] MEDS: NYSTATIN 500,000 UNITS/5 ML ORAL.SUSP SSW SCH ×2 (09:07→13:26)
[2019-01-09] MEDS: QUEtiapine 25 MG TABLET PO SCH (09:07)
[2019-01-09] MEDS: MULTIVIT,THER IRON,CA,FA & MIN 1 TABLET PO SCH (09:07)
[2019-01-09] MEDS: FAMOTIDINE 20 MG TABLET PO SCH (09:07)
[2019-01-09] MEDS: THIAMINE 100 MG TABLET PO SCH (09:08)
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
[2019-01-09 12:19] LABS: POC Blood Urea Nitrogen 7 mg/dl (6-20); POC CO2 19 mmol/L (22-30); POC Calcium, Ionized 1.14 mmol/L (1.16-1.32); POC Chloride 117 mmol/L (96-108); POC Creatinine 0.7 mg/dl (0.6-1.1); POC Glucose, Random 78 mg/dL (70-105); POC Potassium 4.6 mmol/L (3.3-5.1); POC Sodium 146 mmol/L (133-145)
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
== END 2019-01-09 14:30 | disposition home health service (06) | DRG 177 ==
LOC: ED 10:35 → ICU 14:07
PROVIDERS: ADMIT Internal Medicine; ATTEND Internal Medicine